=== PATIENT | female | born 1970 | race American Indian/Alaskan Native ===

== ENCOUNTER 2018-07-25 06:06 | Emergency (ER) | payer MEDICAID ==
[2018-07-25] MEDS ORDERED: TORADOL IM ONE (09:08)
[2018-07-25] MEDS ORDERED: NORCO 5/325 PO ONE (09:08)
--- NOTE | 2018-07-25 09:12 | Emergency Department Report ---
ED General Adult HPI - General Chief complaint: Back Pain/Injury Stated complaint: BACKPAIN/TOOTHACHE Time Seen by Provider: 07/25/18 09:05 Source: patient Mode of arrival: Ambulatory Limitations: No Limitations - History of Present Illness Initial comments: Ms. Johnson is a fairly healthy 47-year-old female with history of degenerative disc disease, emphysema. She presents with back spasms and broken tooth. She helped her friend move out of her apartment. She was lifting boxes on yesterday. Developed back spasms. She's had similar back pain. She now has pain and a broken decayed tooth right upper ridge. Tooth #6. Pain radiated into her right cheek. She noted right cheek swelling. -: Gradual, This morning Location: face, back Radiation: non-radiation Severity scale (0 -10): 8 Quality: aching, constant Consistency: constant Improves with: none Worsens with: movement - Related Data Previous Rx's Medication Instructions Recorded Last Taken Type Pantoprazole [Protonix TAB] 20 mg PO QDAY #10 tablet. 07/17/16 Unknown Rx traMADol [Ultram] 50 mg PO Q6HR PRN #14 tablet 07/17/16 Unknown Rx Amoxicillin/K Clav Tab [Augmentin 1 tab PO Q12HR #20 tab 08/20/16 Unknown Rx 875 mg] Ibuprofen [Motrin] 800 mg PO Q8HR PRN #30 tablet 08/20/16 Unknown Rx metroNIDAZOLE [Flagyl] 500 mg PO Q12HR #14 tab 08/20/16 Unknown Rx Cyclobenzaprine [Flexeril] 10 mg PO TID PRN #20 tablet 07/25/18 Unknown Rx HYDROcodone/APAP 5-325 [[place]ent[place] 1 each PO Q6HR PRN #10 tablet 07/25/18 Unknown Rx 5/325] Ibuprofen 400 mg PO QID 5 Days #20 tablet 07/25/18 Unknown Rx Allergies Allergy/AdvReac Type Severity Reaction Status Date / Time No Known Allergies Allergy Verified 07/25/18 07:35 ED Review of Systems ROS: Stated complaint: BACKPAIN/TOOTHACHE Other details as noted in HPI Comment: All other systems reviewed and negative Constitutional: denies: fever, malaise ENT: denies: throat pain Respiratory: denies: cough Cardiovascular: denies: chest pain Neurological: numbness, paresthesias ED Past Medical Hx - Past Medical History Hx Heart Attack/AMI: No Additional medical history: emphysema - Surgical History Additional Surgical History: LEFT LEG / SPURS / C SECTIONS X 2 - Social History Smoking Status: Current Every Day Smoker Substance Use Type: None - Medications Home Medications: Home Medications Medication Instructions Recorded Confirmed Last Taken Type Pantoprazole [Protonix TAB] 20 mg PO QDAY #10 tablet.dr 07/17/16 Unknown Rx traMADol [Ultram] 50 mg PO Q6HR PRN #14 tablet 07/17/16 Unknown Rx Amoxicillin/K Clav Tab [Augmentin 1 tab PO Q12HR #20 tab 08/20/16 Unknown Rx 875 mg] Ibuprofen [Motrin] 800 mg PO Q8HR PRN #30 tablet 08/20/16 Unknown Rx metroNIDAZOLE [Flagyl] 500 mg PO Q12HR #14 tab 08/20/16 Unknown Rx Cyclobenzaprine [Flexeril] 10 mg PO TID PRN #20 tablet 07/25/18 Unknown Rx HYDROcodone/APAP 5-325 [Valentine 1 each PO Q6HR PRN #10 tablet 07/25/18 Unknown Rx 5/325] Ibuprofen 400 mg PO QID 5 Days #20 tablet 07/25/18 Unknown Rx ED Physical Exam - General Limitations: No Limitations General appearance: alert, in no apparent distress - Head Head exam: Present: atraumatic, normocephalic - Eye Eye exam: Present: normal appearance - ENT ENT exam: Present: mucous membranes moist, other (tooth #6, severe decay, with obvious avulsion, dangling, no associated gum or face swelling) - Neck Neck exam: Present: normal inspection, other (no facial or neck edema). Absent : tenderness, meningismus - Respiratory Respiratory exam: Present: normal lung sounds bilaterally. Absent: respiratory distress, wheezes, rales, rhonchi - Cardiovascular Cardiovascular Exam: Present: regular rate, normal rhythm, normal heart sounds. Absent: bradycardia, tachycardia, systolic murmur, diastolic murmur, rubs, gallop - GI/Abdominal GI/Abdominal exam: Present: soft, normal bowel sounds. Absent: distended, tenderness, guarding, rebound - Extremities Exam Extremities exam: Present: normal inspection - Back Exam Back exam: Present: normal inspection - Neurological Exam Neurological exam: Present: alert, oriented X3 - Psychiatric Psychiatric exam: Present: normal affect, normal mood - Skin Skin exam: Present: warm, dry, intact, normal color. Absent: rash ED Course Vital Signs 07/25/18 07:35 Temperature 98.1 F Pulse Rate 84 Respiratory 18 Rate Blood Pressure 126/84 O2 Sat by Pulse 100 Oximetry ED Medical Decision Making - Medical Decision Making 1. back strain due to heavy lifting, neurologically intact without red flags such as fever, weight loss of hx of IVDA, no s/s of cauda equina, rx: ibuprofen , flexeril, norco 2. severe dental decay with tooth fracture, tooth will be lost soon, Rx: PCN for possible dental infection Critical care attestation.: If time is entered above; I have spent that time in minutes in the direct care of this critically ill patient, excluding procedure time. ED Disposition Clinical Impression: Back strain, Dental decay, Dental infection Disposition: TO HOME OR SELFCARE Is pt being admited?: No Does the pt Need Aspirin: No Condition: Stable Instructions: Low Back Strain (ED), Dental Caries (ED) Prescriptions: Cyclobenzaprine [Flexeril] 10 mg PO TID PRN #20 tablet PRN Reason: Muscle Spasm HYDROcodone/APAP 5-325 [Valentine 5/325] 1 each PO Q6HR PRN #10 tablet PRN Reason: Pain Ibuprofen 400 mg PO QID 5 Days #20 tablet
[2018-07-25 09:45] VITALS: BP 139/87
== END 2018-07-25 09:55 | disposition home or self-care (01) ==
LOC: ED 06:06
DX: S39.012A Strain of muscle, fascia and tendon of lower back, initial encounter (principal); K02.9 Dental caries, unspecified; J43.9 Emphysema, unspecified; F17.200 Nicotine dependence, unspecified, uncomplicated; X50.0XXA Overexertion from strenuous movement or load, initial encounter; Y93.89 Activity, other specified; Y92.89 Other specified places as the place of occurrence of the external cause; Y99.8 Other external cause status
CPT/HCPCS: 96372; 99282; J1885

== ENCOUNTER 2019-03-10 15:21 | Inpatient (IN) | payer MEDICAID ==
--- NOTE | 2019-03-10 15:53 | Emergency Department Report ---
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 Apparently the patient passed out twice while she was in the office for a "routine visit." She says that she has a history of coronary artery disease and NSTEMI but no stents or CABG. It does not appear that she received anything for her symptoms in route with EMS or at the field care coordinator's office. No recent travel or sick contacts at home. She is a tobacco smoker but denies any illicit drug use. ED Past Medical Hx - Past Medical History Previous Medical History?: Yes Hx Heart Attack/AMI: Yes Additional medical history: emphysema - Surgical History Past Surgical History?: Yes Additional Surgical History: LEFT LEG / SPURS / C SECTIONS X 2 - Social History Smoking Status: Current Every Day Smoker Substance Use Type: None - Medications Home Medications: Home Medications Medication Instructions Recorded Confirmed Last Taken Type Pantoprazole [Protonix TAB] 20 mg PO QDAY #10 tablet.dr 07/17/16 Unknown Rx traMADol [Ultram] 50 mg PO Q6HR PRN #14 tablet 07/17/16 Unknown Rx Amoxicillin/K Clav Tab [Augmentin 1 tab PO Q12HR #20 tab 08/20/16 Unknown Rx 875 mg] Ibuprofen [Motrin] 800 mg PO Q8HR PRN #30 tablet 08/20/16 Unknown Rx metroNIDAZOLE [Flagyl] 500 mg PO Q12HR #14 tab 08/20/16 Unknown Rx Cyclobenzaprine [Flexeril] 10 mg PO TID PRN #20 tablet 07/25/18 Unknown Rx HYDROcodone/APAP 5-325 [[place] 1 each PO Q6HR PRN #10 tablet 07/25/18 Unknown Rx 5/325] Ibuprofen 400 mg PO QID 5 Days #20 tablet 07/25/18 Unknown Rx ED Review of Systems ROS: Stated complaint: CHEST PAIN Other details as noted in HPI Constitutional: denies: chills, fever Eyes: denies: eye pain, vision change ENT: denies: ear pain, throat pain Respiratory: orthopnea, shortness of breath Cardiovascular: chest pain. denies: edema Gastrointestinal: denies: abdominal pain, vomiting Genitourinary: denies: dysuria, discharge Musculoskeletal: denies: back pain, arthralgia Skin: denies: rash, lesions Neurological: denies: headache, weakness Physical Exam - Physical Exam Vital Signs: Vital Signs 03/10/19 15:30 Temperature 97.8 F Pulse Rate 67 Respiratory 16 Rate Blood Pressure 153/84 O2 Sat by Pulse 100 Oximetry Physical Exam: GENERAL: The patient is well-developed well-nourished. HENT: Normocephalic. Atraumatic. Patient has moist mucous membranes. EYES: Extraocular motions are intact. Pupils equal reactive to light bilaterally. NECK: Supple. Trachea is midline. CHEST/LUNGS: Clear to auscultation. There is some tachypnea as the patient appears to be hyperventilating. HEART/CARDIOVASCULAR: Regular. There is no tachycardia. There is no murmur. ABDOMEN: Abdomen is soft, nontender. Patient has normal bowel sounds. There is no abdominal distention. SKIN: Skin is warm and dry. NEURO: The patient is awake, alert, and oriented. The patient has no focal neurologic deficits. The patient has normal speech. MUSCULOSKELETAL: There is no tenderness or deformity. There is no limitation range of motion. There is no evidence of acute injury. ED Course Vital Signs 03/10/19 15:30 Temperature 97.8 F Pulse Rate 67 Respiratory 16 Rate Blood Pressure 153/84 O2 Sat by Pulse 100 Oximetry ED Medical Decision Making - Lab Data Result diagrams: 03/10/19 15:34 03/10/19 15:42 - EKG Data -: EKG Interpreted by Me EKG shows normal: sinus rhythm, axis, intervals, QRS complexes, ST-T waves Rate: normal - EKG Data When compared to previous EKG there are: previous EKG unavailable Interpretation: normal EKG - Radiology Data Radiology results: report reviewed, image reviewed interpreted by me: Chest x-ray does not show any acute process. There are no pleural effusions, obvious pneumonia and there is no pneumothorax. PROCEDURE: CT ANGIO CHEST TECHNIQUE: Computerized tomographic angiography of the chest was performed after the IV injection of iodinated nonionic contrast including image processing. The image data was postprocessed using 2-dimensional multiplanar reformatted (MPR) and 3-dimensional (MIP and/or volume rendered) techniques. Automated exposure control, adjustment of mA and/or kV according to patient size, or iterative reconstruction dose optimization techniques were utilized. CT DOSE LENGTH PRODUCT: 723.4 mGycm HISTORY: CP, elevated dimer COMPARISONS: Chest x-ray also performed today . FINDINGS: There is bilateral pulmonary emphysema. There is no evidence of focal infiltrate, pneumothorax or pleural fluid collection. There is platelike atelectasis in the right lung base. The trachea and bronchi are patent. The heart is enlarged. There is a small pericardial fluid collection anteriorly. The thoracic aorta is normal caliber. There is no evidence of intrathoracic adenopathy. No filling defects are demonstrated within the pulmonary arteries to suggest the presence of pulmonary artery emboli. The visualized portion of the upper abdomen is unremarkable. The bony structures are notable for spondylitic change of the cervical and thoracic spine. IMPRESSION: 1. No evidence of an acute pulmonary process. 2. No evidence of pulmonary artery emboli. 3. Pulmonary emphysema. 4. Cardiomegaly with small pericardial fluid collection. 5. Spondylitic changes cervical and thoracic spine. This document is electronically signed by Mary Stevens MD., March 10 2019 06:54:15 PM ET Transcribed By: ED Dictated By: MARY STEVENS MD Electronically Authenticated By: MARY STEVENS MD Signed Date/Time: 03/10/19 2196 - Medical Decision Making This patient presents to the emergency department via EMS from the cardiology office after she allegedly had 2 episodes of passing out along with some chest pain or shortness of breath. This emergency department, she appears to be hyperventilating slightly but her heart and lungs sounds are normal to auscultation. There is no signs of any hypoxia. Her vital signs are stable. A chest x-ray was done that does not show any pleural effusions, pneumonia, pneumothorax, focal consolidation, or any other acute process. Her labs have been unremarkable except for an elevated and equivocal d-dimer. CT angiography of the chest was done that does not show any signs of pulmonary embolism, dissection, aneurysm, or any other acute process. However given the patient's chest pain, syncopal episodes, while in the cardiology office, with her history of NSTEMI, the patient will be admitted to the hospital for further evaluation and was accepted for admission by the hospitalist. - Differential Diagnosis LA, PE, CHF, Pneumonia Critical Care Time: No Critical care attestation.: If time is entered above; I have spent that time in minutes in the direct care of this critically ill patient, excluding procedure time. ED Disposition Clinical Impression: Acute chest pain Syncope Qualifiers: Syncope type: unspecified Qualified Code(s): R55 - Syncope and collapse Hypertension Qualifiers: Hypertension type: essential hypertension Qualified Code(s): I10 - Essential (primary) hypertension Disposition: DC- TO HOME OR SELFCARE Is pt being admited?: Yes Condition: Fair Instructions: Chest Pain (ED), Syncope (ED), Hypertension (ED) Time of Disposition: 19:41
[2019-03-10 16:03] LABS: Hematocrit 30.8 % (30.3-42.9); Hemoglobin 9.9 gm/dl (10.1-14.3); Mean Corpuscular HGB Conc 32 % (30-34); Mean Corpuscular Volume 76 fl (79-97); Platelet Count 298 K/mm3 (140-440); Red Blood Count 4.06 M/mm3 (3.65-5.03)
[2019-03-10 16:05] LABS: INR 0.92 (0.87-1.13); Partial Thromboplastin Time 31.8 Sec. (24.2-36.6)
[2019-03-10 16:21] LABS: Red Cell Distribution Width 21.5 % (13.2-15.2)
[2019-03-10 16:31] LABS: Alanine Aminotransferase 16 units/L (7-56); Albumin 3.6 g/dL (3.9-5); BUN/Creatinine Ratio 9; Blood Urea Nitrogen 9 mg/dL (7-17); Calcium 9.1 mg/dL (8.4-10.2); Hemolysis Index 7
--- NOTE | 2019-03-10 16:58 | XRay Report ---
PROCEDURE: XR CHEST 1V AP TECHNIQUE: Chest radiograph single view. HISTORY: Chest Pain COMPARISONS: None . FINDINGS: Heart: Normal. Mediastinum/Vessels: Normal. Lungs/Pleural space: Normal. Bony thorax: No acute osseous abnormality. Life support devices: None. IMPRESSION: No acute cardiopulmonary abnormality. This document is electronically signed by Zaina Brooks MD., March 10 2019 04:56:23 PM ET
[2019-03-10] MEDS ORDERED: MORPHINE IV ONE (18:33)
--- NOTE | 2019-03-10 18:55 | Cat Scan Report ---
PROCEDURE: CT ANGIO CHEST TECHNIQUE: Computerized tomographic angiography of the chest was performed after the IV injection of iodinated nonionic contrast including image processing. The image data was postprocessed using 2-di mensional multiplanar reformatted (MPR) and 3-dimensional (MIP and/or volume rendered) techniques. Au tomated exposure control, adjustment of mA and/or kV according to patient size, or iterative reconstr uction dose optimization techniques were utilized. CT DOSE LENGTH PRODUCT: 723.4 mGycm HISTORY: CP, elevated dimer COMPARISONS: Chest x-ray also performed today . FINDINGS: There is bilateral pulmonary emphysema. There is no evidence of focal infiltrate, pneumothorax or pleural fluid collection. There is platelike atelectasis in the right lung base. The trachea and bronchi are patent. The heart is enlarged. There is a small pericardial fluid collection anteriorly. The thoracic aorta is normal caliber. There is no evidence of intrathoracic adenopathy. No filling defects are demonstrated within the pulmonary arteries to suggest the presence of pulmonar y artery emboli. The visualized portion of the upper abdomen is unremarkable. The bony structures are notable for spondylitic change of the cervical and thoracic spine. IMPRESSION: 1. No evidence of an acute pulmonary process. 2. No evidence of pulmonary artery emboli. 3. Pulmonary emphysema. 4. Cardiomegaly with small pericardial fluid collection. 5. Spondylitic changes cervical and thoracic spine. This document is electronically signed by Mary Stevens MD., March 10 2019 06:54:15 PM ET
[2019-03-10] MEDS ORDERED: BENADRYL PO ONE (20:00)
[2019-03-10] MEDS ORDERED: PROVENTIL IH PRN (20:14)
[2019-03-10] MEDS ORDERED: ZOFRAN IV PRN (20:14)
[2019-03-10] MEDS ORDERED: MORPHINE IV PRN (20:14)
[2019-03-10] MEDS ORDERED: SODIUM CHLORIDE FLUSH SYRINGE 10 ML IV PRN (20:14)
[2019-03-10] MEDS ORDERED: PULMICORT IH SCH (20:15)
[2019-03-10] MEDS: DUONEB *Not for PRN Use IH SCH (20:15)
[2019-03-10] MEDS ORDERED: NITROSTAT SL PRN (20:16)
[2019-03-10 21:06] LABS: Chol/HDL Ratio 2.19 %
--- NOTE | 2019-03-10 21:36 | History and Physical Report ---
History of Present Illness Date of examination: 03/10/19 Date of admission: 03/10/19 20:14 Chief complaint: Chest pain and shortness of breath History of present illness: 48-year-old -Portuguese female who is a nonsmoker with history of degenerative disc disease, and emphysema presents [facility] ED via EMS with complaints of substernal chest pain and shortness of breath. 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) earlier today when she started experiencing substernal chest pain and shortness of breath. EMS was called and she was transported to our facility. She describes her pain as pressure and rates it 4 -5 /10. It is non-radiating and there are no aggravating or relieving factors. She states that her dyspnea is at rest. She is unable to lie flat and experiences orthopnea. According to patient she experienced two syncopal episodes. This is questionable and has not been confirmed by medical personnel. Furthermore patient states she has history of coronary artery disease and an STEMI. There is no evidence of CABG or stent placement and she denies being on antihypertensive, heart failure medication. Of note, pt states that she eats "carpet and strings". She has been doing so for several years. She states that she checks her stool, and that all "carpet fibers and strings" consumed are passed in stool. Denies cough, n/v/d, fever, chills, hemoptysis, headache Past History Past Medical History: other (emphysema, degenerative disc disease) Past Surgical History: (x2), Other Social history: smoking (smokes) Family history: no significant family history Medications and Allergies Allergies Allergy/AdvReac Type Severity Reaction Status Date / Time No Known Allergies Allergy Verified 07/25/18 07:35 Home Medications Medication Instructions Recorded Confirmed Last Taken Type Acetaminophen [Non-Aspirin Extra 1,000 mg PO BID 03/10/19 03/10/19 Unknown History Strength] Amoxicillin [Trimox CAP] 500 mg PO Q8H 03/10/19 03/10/19 Unknown History Oxycodone HCl/Acetaminophen 1 each PO Q6HR PRN 03/10/19 03/10/19 Unknown History [Percocet 7.5/325 mg] traMADol [Ultram] 50 mg PO BID PRN 03/10/19 03/10/19 Unknown History Active Meds: Active Medications Acetaminophen (Tylenol) 650 mg PO Q4H PRN PRN Reason: Pain MILD(1-3)/Fever >100.5/QUINN Albuterol (Proventil) 2.5 mg IH Q3HRT PRN PRN Reason: Shortness Of Breath Albuterol/Ipratropium (Duoneb *Not For Prn Use*) 1 ampul IH Q6HRT COBY Aspirin (Baby Aspirin) 81 mg PO QDAY COBY Atorvastatin Calcium (Lipitor) 40 mg PO QHS COBY Budesonide (Pulmicort) 0.5 mg IH Q12HRT COBY Enoxaparin Sodium (Lovenox) 40 mg SUB-Q QDAY@2200 COBY Hydromorphone HCl (Dilaudid) 0.5 mg IV Q3H PRN PRN Reason: Pain , Severe (7-10) Methylprednisolone Sodium Succinate (Solu-Medrol) 40 mg IV Q8HR COBY Morphine Sulfate (Morphine) 2 mg IV Q4H PRN PRN Reason: Pain, Moderate (4-6) Stop: 03/11/19 23:59 Nicotine (Habitrol) 14 mg TD QDAY COBY Nitroglycerin (Nitrostat) 0.4 mg SL Q5M PRN PRN Reason: Chest Pain Ondansetron HCl (Zofran) 4 mg IV Q8H PRN PRN Reason: Nausea And Vomiting Sodium Chloride (Sodium Chloride Flush Syringe 10 Ml) 10 ml IV BID COBY Sodium Chloride (Sodium Chloride Flush Syringe 10 Ml) 10 ml IV PRN PRN PRN Reason: LINE FLUSH Review of Systems All systems: negative (reviewed and no additional remarkable complaints except as noted above) Cardiovascular: chest pain, orthopnea, shortness of breath, dyspnea on exertion Respiratory: shortness of breath, dyspnea on exertion Psychiatric: other (PICA: Eats carpet and strings) Exam - Physical Exam Narrative exam: Physical exam General appearance: Present: No acute distress, anxious, alert and oriented 3, adult female - EENT Eyes: Present: PERRL, EOM intact ENT: hearing intact, normal dentition - Neck Neck: Present: supple, normal ROM - Respiratory Respiratory effort: Non-labored Respiratory: Clear throughout - Cardiovascular Heart rate: 68 (bpm) Rhythm: Sinus rhythm Heart Sounds: Present: S1 & S2. Absent: rub, click - Extremities Extremities: no ischemia, pulses intact, - Peripheral Assessment Peripheral Pulses: within normal limits - Abdominal General gastrointestinal: soft, non-tender, normal bowel sounds - Integumentary Integumentary: Present: warm, dry - Musculoskeletal Musculoskeletal: Able to move all extremities -Neurological Neurological: CNII-XII intact - Psychiatric Psychiatric: Anxious, cooperative - Constitutional Vitals: Temp Pulse Resp BP Pulse Ox 97.8 F 64 18 146/79 99 03/10/19 15:30 03/10/19 21:01 03/10/19 21:01 03/10/19 21:01 03/10/19 21:01 Results - Labs CBC & Chem 7: 03/10/19 15:34 03/10/19 15:42 Labs: Laboratory Last Values WBC 5.9 K/mm3 (4.5-11.0) 03/10/19 15:34 RBC 4.06 M/mm3 (3.65-5.03) 03/10/19 15:34 Hgb 9.9 gm/dl (10.1-14.3) L 03/10/19 15:34 Hct 30.8 % (30.3-42.9) 03/10/19 15:34 MCV 76 fl (79-97) L 03/10/19 15:34 MCH 24 pg (28-32) L 03/10/19 15:34 MCHC 32 % (30-34) 03/10/19 15:34 RDW 21.5 % (13.2-15.2) H 03/10/19 15:34 Plt Count 298 K/mm3 (140-440) 03/10/19 15:34 Lymph % (Auto) Chemical Laboratory Assistant 03/10/19 15:34 Bay % (Auto) Chemical Laboratory Assistant 03/10/19 15:34 Eos % (Auto) Chemical Laboratory Assistant 03/10/19 15:34 Baso % (Auto) Chemical Laboratory Assistant 03/10/19 15:34 Lymph # Chemical Laboratory Assistant 03/10/19 15:34 Bay # Chemical Laboratory Assistant 03/10/19 15:34 Eos # Chemical Laboratory Assistant 03/10/19 15:34 Baso # Chemical Laboratory Assistant 03/10/19 15:34 Seg Neutrophils % Chemical Laboratory Assistant 03/10/19 15:34 Seg Neutrophils # Chemical Laboratory Assistant 03/10/19 15:34 PT 12.9 Sec. (12.2-14.9) 03/10/19 15:41 INR 0.92 (0.87-1.13) 03/10/19 15:41 APTT 31.8 Sec. (24.2-36.6) 03/10/19 15:41 504.38 ng/mlDDU (0-234) H 03/10/19 15:41 Sodium 139 mmol/L (137-145) 03/10/19 15:42 Potassium 3.8 mmol/L (3.6-5.0) 03/10/19 15:42 Chloride 105.2 mmol/L (98-107) 03/10/19 15:42 Carbon Dioxide 25 mmol/L (22-30) 03/10/19 15:42 13 mmol/L 03/10/19 15:42 BUN 9 mg/dL (7-17) 03/10/19 15:42 1.0 mg/dL (0.7-1.2) 03/10/19 15:42 Estimated GFR > 60 ml/min 03/10/19 15:42 9 % 03/10/19 15:42 Glucose 77 mg/dL (65-100) 03/10/19 15:42 Calcium 9.1 mg/dL (8.4-10.2) 03/10/19 15:42 0.20 mg/dL (0.1-1.2) 03/10/19 15:42 AST 20 units/L (5-40) 03/10/19 15:42 ALT 16 units/L (7-56) 03/10/19 15:42 64 units/L (35-129) 03/10/19 15:42 < 0.010 ng/mL (0.00-0.029) 03/10/19 20:40 NT-Pro-B Natriuret Pep 442.3 pg/mL (0-450) 03/10/19 15:42 6.8 g/dL (6.3-8.2) 03/10/19 15:42 3.6 g/dL (3.9-5) L 03/10/19 15:42 1.1 % 03/10/19 15:42 Triglycerides 153 mg/dL (2-149) H 03/10/19 20:40 Cholesterol 147 mg/dL (50-199) 03/10/19 20:40 58 mg/dL (50-130) 03/10/19 20:40 67 mg/dL (40-59) H 03/10/19 20:40 2.19 % 03/10/19 20:40 HCG, Qual Negative (Negative) 03/10/19 15:34 - Imaging and Cardiology Chest x-ray: report reviewed ( No acute cardiopulmonary abnormality. ), image reviewed Imaging and Cardiology: CTA Chest: IMPRESSION: 1. No evidence of an acute pulmonary process. 2. No evidence of pulmonary artery emboli. 3. Pulmonary emphysema. 4. Cardiomegaly with small pericardial fluid collection. 5. Spondylitic changes cervical and thoracic spine. Assessment and Plan Assessment and plan: 48-year-old -Portuguese female who is a nonsmoker with history of deg enerative disc disease, and emphysema presents [facility] ED via EMS with complaints of substernal chest pain and shortness of breath. Troponin negative 3, d-dimer is elevated at 504.38 CT angiogram chest negative for PE. CT angiogram chest was revealing for emphysematous changes. Will admit as OBS to Telemetry unit. Patient stated that she consumes "carpet and strings"; will order mental health consult as well. Acute chest pain R/O ACS HTN Emphysema Questionable COPD Suspicion of psychiatric disease Tobacco abuse Plan: Continue supportive care Continuous telemetry monitoring Pain management Nothing by mouth at midnight Stress test (treadmill) in am Cardiology consult (Dr. Vargas) Monitor BP IV hydralazine when necessary Schedule and Pulmicort, albuterol when necessary Solu-Medrol 40 mg every 8 hours Counseled for cessation; start nicotine patch ASA 81mg, and Lipitor 40 mg daily at bedtime Mental health consult pending DVT PPX on Lovenox and SCD's Advance Directives: No VTE prophylaxis?: Chemical Reason for no VTE Prophylaxis: Anticoagulant allergy Plan of care discussed with patient/family: Yes
[2019-03-10] MEDS: SOLU-Medrol IV SCH (22:27)
[2019-03-10] MEDS: DILAUDID IV PRN (22:28)
[2019-03-10] MEDS: LOVENOX SUB-Q SCH (22:28)
[2019-03-10] MEDS: SODIUM CHLORIDE FLUSH SYRINGE 10 ML IV SCH (22:29)
[2019-03-11] MEDS: HABITROL TD SCH ×2 (01:11→21:00)
[2019-03-11] MEDS: BENADRYL PO PRN (01:12)
[2019-03-11] MEDS: DUONEB *Not for PRN Use IH SCH (03:01)
[2019-03-11] MEDS: DILAUDID IV PRN (03:16)
[2019-03-11 05:45] LABS: Basophils % (Auto) 0.5 % (0.0-1.8); Eosinophils % (Auto) 0.1 % (0.0-4.3); Hematocrit 30.8 % (30.3-42.9); Hemoglobin 9.7 gm/dl (10.1-14.3); Lymphocytes % (Auto) 11.5 % (13.4-35.0); Mean Corpuscular HGB Conc 32 % (30-34); Mean Corpuscular Volume 76 fl (79-97); Monocytes # (Auto) 0.2 K/mm3 (0.0-0.8); Monocytes % (Auto) 2.2 % (0.0-7.3); Platelet Count 278 K/mm3 (140-440); Red Blood Count 4.08 M/mm3 (3.65-5.03)
[2019-03-11] MEDS: SOLU-Medrol IV SCH (05:45)
[2019-03-11 05:52] LABS: Red Cell Distribution Width 21.2 % (13.2-15.2)
[2019-03-11 05:54] LABS: BUN/Creatinine Ratio 11; Blood Urea Nitrogen 11 mg/dL (7-17); Calcium 8.8 mg/dL (8.4-10.2); Hemolysis Index 1
[2019-03-11] MEDS: PERCOCET 5/325 PO PRN ×2 (10:21→20:30)
[2019-03-11] MEDS: BABY ASPIRIN PO SCH (10:21)
[2019-03-11] MEDS: SODIUM CHLORIDE FLUSH SYRINGE 10 ML IV SCH ×2 (10:23→21:02)
--- NOTE | 2019-03-11 12:26 | Progress Note ---
Assessment and Plan - Patient Problems (1) Syncope Current Visit: Yes Status: Acute Qualifiers: Syncope type: unspecified Qualified Code(s): R55 - Syncope and collapse Plan to address problem: Patient with atypical chest pain and syncope, etiology of the chest pain is uncertain, syncope appears possibly vasovagal, although malingering cannot be excluded. At this point, a stress test will not be helpful, and patient states she is unable to lay flat. Optimal strategies for further evaluation will be a coronary CTA or diagnostic coronary angiography. Subjective Date of service: 03/11/19 Interval history: The patient reported to our office yesterday, complaining of severe chest pain, EKG during the chest pain was normal with no ischemic ST changes. There was also a transient episode of syncope, during which EKG remained stable sinus rhythm with no ischemic EKG changes. Blood pressure was also normal. The observed episode of syncope appeared vasovagal, but curiously without any hemodynamic changes, making the suspicion of malingering to be a consideration in this setting. Further workup in the emergency room has also been normal, including a CT chest PE protocol, chest x-ray, serial ECGs and serial cardiac enzymes. Objective Vital Signs Temp Pulse Pulse Resp Resp BP Pulse Ox 03/11/19 11:53 97.7 F 84 18 94/43 72 L 03/11/19 11:21 20 03/11/19 10:21 20 03/11/19 10:00 76 03/11/19 07:49 97.5 F L 18 111/51 03/11/19 04:41 97.9 F 64 20 106/51 94 03/11/19 03:52 97 03/11/19 03:36 97 03/11/19 03:16 79 20 20 03/11/19 03:01 77 20 03/11/19 02:25 72 03/11/19 01:44 68 03/11/19 00:12 98.3 F 65 20 150/79 100 03/10/19 22:30 97.5 F L 64 20 136/79 96 03/10/19 21:50 74 16 146/79 100 03/10/19 21:40 74 18 146/79 100 03/10/19 21:30 60 16 97 03/10/19 21:20 62 18 146/79 99 03/10/19 21:11 59 L 15 146/79 99 03/10/19 21:01 64 18 146/79 99 03/10/19 20:45 58 L 19 139/76 99 03/10/19 20:33 139/76 72 L 03/10/19 20:15 78 25 H 145/63 100 03/10/19 20:01 58 L 20 145/63 99 03/10/19 19:45 66 18 139/76 88 03/10/19 19:31 64 27 H 139/76 96 03/10/19 19:15 71 16 139/76 84 03/10/19 19:01 67 21 139/76 03/10/19 18:45 86 17 88/70 03/10/19 18:31 68 19 88/70 94 03/10/19 18:15 70 21 88/70 91 03/10/19 18:04 66 26 H 88/70 100 03/10/19 17:46 69 14 88/70 98 03/10/19 17:30 69 30 H 88/70 100 03/10/19 17:16 73 35 H 88/70 100 03/10/19 17:04 72 29 H 153/84 99 03/10/19 16:30 61 14 153/84 100 03/10/19 16:16 70 32 H 153/84 100 03/10/19 16:00 68 46 H 153/84 100 03/10/19 15:46 63 35 H 153/84 82 L 03/10/19 15:30 97.8 F 72 32 H 153/84 87 03/10/19 15:28 75 29 H - Physical Examination General: No Apparent Distress HEENT: Positive: PERRL Neck: Positive: neck supple Cardiac: Positive: Reg Rate and Rhythm Lungs: Positive: clear to auscultation Neuro: Positive: Grossly Intact Abdomen: Positive: Soft Skin: Positive: Clear Extremities: Absent: edema - Labs and Meds Cardiac Enzymes 03/10/19 Range/Units 15:42 AST 20 (5-40) units/L Coagulation 03/10/19 Range/Units 15:41 PT 12.9 (12.2-14.9) Sec. INR 0.92 (0.87-1.13) APTT 31.8 (24.2-36.6) Sec. Lipids 03/10/19 Range/Units 20:40 Triglycerides 153 H (2-149) mg/dL Cholesterol 147 (50-199) mg/dL HDL Cholesterol 67 H (40-59) mg/dL Cholesterol/HDL Ratio 2.19 % CBC 03/10/19 03/11/19 Range/Units 15:34 04:04 WBC 5.9 8.8 (4.5-11.0) K/mm3 RBC 4.06 4.08 (3.65-5.03) M/mm3 Hgb 9.9 L 9.7 L (10.1-14.3) gm/dl Hct 30.8 30.8 (30.3-42.9) % Plt Count 298 278 (140-440) K/mm3 Lymph # Interior Design Coordinator 1.0 L [place] # Interior Design Coordinator 0.2 Eos # Interior Design Coordinator 0.0 Baso # Interior Design Coordinator 0.0 Comprehensive Metabolic Panel 03/10/19 03/11/19 Range/Units 15:42 04:04 Sodium 139 136 L (137-145) mmol/L Potassium 3.8 4.4 (3.6-5.0) mmol/L Chloride 105.2 103.6 (98-107) mmol/L Carbon Dioxide 25 24 (22-30) mmol/L BUN 9 11 (7-17) mg/dL Creatinine 1.0 1.0 (0.7-1.2) mg/dL Glucose 77 157 H (65-100) mg/dL Calcium 9.1 8.8 (8.4-10.2) mg/dL AST 20 (5-40) units/L ALT 16 (7-56) units/L Alkaline Phosphatase 64 (35-129) units/L Total Protein 6.8 (6.3-8.2) g/dL Albumin 3.6 L (3.9-5) g/dL
--- NOTE | 2019-03-11 13:08 | Progress Note ---
Assessment and Plan Assessment and plan: 48-year-old -[place] female who is a nonsmoker with history of degenerative disc disease, and emphysema presents [facility] ED via EMS with complaints of substernal chest pain and shortness of breath. 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 EMS was called and she was transported to our facility. She describes her pain as pressure and rates it 4 -5 /10. It is non-radiating and there are no aggravating or relieving factors. She states that her dyspnea is at rest. She is unable to lie flat and experiences orthopnea. According to patient she experienced two syncopal episodes. This is questionable and has not been confirmed by medical personnel. Furthermore patient states she has history of coronary artery disease and an STEMI. There is no evidence of CABG or stent placement and she denies being on antihypertensive, heart failure medication. Of note, pt states that she eats "carpet and strings". She has been doing so for several years. She states that she checks her stool, and that all "carpet fibers and strings" consumed are passed in stool. Chest pain - Cardiac events are negative, EKG sinus rhythm no murmur findings - Cardiology consulted and recommend diagnostic coronary CTA, or coronary angiography - We'll follow recommendation - Pain control - CTA is negative Psychiatric illness - Patient said she is eating carpet fibers and strings - Mental health evaluation pending History of emphysema - Currently patient denies any shortness of breath - Continue albuterol when necessary DVT prophylaxis; Lovenox Disposition; patient will be here for workup till Wednesday, F/u psych input History Interval history: Patient was seen and evaluated this morning, patient complaining chest pain. Hospitalist Physical - Physical exam Narrative exam: Not in cardiopulmonary distress. The patient is obese. Vital signs as documented. Head exam is unremarkable. No scleral icterus . Neck is without jugular venous distension, thyromegaly, or carotid bruits. Lungs are clear to auscultation. Cardiac exam reveals regular rate and Rhythm. Abdominal exam reveals normal bowel sounds, no masses, no organomegaly and no a ortic enlargement. Extremities are nonedematous and both femoral and pedal pulses are normal. FLIGHT NURSE: Alert and oriented 3. No focal weakness. - Constitutional Vitals: Temp Pulse Resp BP Pulse Ox 97.7 F 84 18 94/43 72 L 03/11/19 11:53 03/11/19 11:53 03/11/19 11:53 03/11/19 11:53 03/11/19 11:53 Results - Labs CBC & Chem 7: 03/11/19 04:04 03/11/19 04:04 Labs: Laboratory Last Values WBC 8.8 K/mm3 (4.5-11.0) 03/11/19 04:04 RBC 4.08 M/mm3 (3.65-5.03) 03/11/19 04:04 Hgb 9.7 gm/dl (10.1-14.3) L 03/11/19 04:04 Hct 30.8 % (30.3-42.9) 03/11/19 04:04 MCV 76 fl (79-97) L 03/11/19 04:04 MCH 24 pg (28-32) L 03/11/19 04:04 MCHC 32 % (30-34) 03/11/19 04:04 RDW 21.2 % (13.2-15.2) H 03/11/19 04:04 Plt Count 278 K/mm3 (140-440) 03/11/19 04:04 Lymph % (Auto) 11.5 % (13.4-35.0) L 03/11/19 04:04 [place] % (Auto) 2.2 % (0.0-7.3) 03/11/19 04:04 Eos % (Auto) 0.1 % (0.0-4.3) 03/11/19 04:04 Baso % (Auto) 0.5 % (0.0-1.8) 03/11/19 04:04 Lymph # 1.0 K/mm3 (1.2-5.4) L 03/11/19 04:04 [place] # 0.2 K/mm3 (0.0-0.8) 03/11/19 04:04 Eos # 0.0 K/mm3 (0.0-0.4) 03/11/19 04:04 Baso # 0.0 K/mm3 (0.0-0.1) 03/11/19 04:04 Seg Neutrophils % 85.7 % (40.0-70.0) H 03/11/19 04:04 Seg Neutrophils # 7.6 K/mm3 (1.8-7.7) 03/11/19 04:04 PT 12.9 Sec. (12.2-14.9) 03/10/19 15:41 INR 0.92 (0.87-1.13) 03/10/19 15:41 APTT 31.8 Sec. (24.2-36.6) 03/10/19 15:41 504.38 ng/mlDDU (0-234) H 03/10/19 15:41 Sodium 136 mmol/L (137-145) L 03/11/19 04:04 Potassium 4.4 mmol/L (3.6-5.0) 03/11/19 04:04 Chloride 103.6 mmol/L (98-107) 03/11/19 04:04 Carbon Dioxide 24 mmol/L (22-30) 03/11/19 04:04 13 mmol/L 03/11/19 04:04 BUN 11 mg/dL (7-17) 03/11/19 04:04 1.0 mg/dL (0.7-1.2) 03/11/19 04:04 Estimated GFR > 60 ml/min 03/11/19 04:04 11 % 03/11/19 04:04 Glucose 157 mg/dL (65-100) H 03/11/19 04:04 POC Glucose 78 (70-105) 03/10/19 15:34 Calcium 8.8 mg/dL (8.4-10.2) 03/11/19 04:04 0.20 mg/dL (0.1-1.2) 03/10/19 15:42 AST 20 units/L (5-40) 03/10/19 15:42 ALT 16 units/L (7-56) 03/10/19 15:42 64 units/L (35-129) 03/10/19 15:42 < 0.010 ng/mL (0.00-0.029) 03/10/19 20:40 NT-Pro-B Natriuret Pep 442.3 pg/mL (0-450) 03/10/19 15:42 6.8 g/dL (6.3-8.2) 03/10/19 15:42 3.6 g/dL (3.9-5) L 03/10/19 15:42 1.1 % 03/10/19 15:42 Triglycerides 153 mg/dL (2-149) H 03/10/19 20:40 Cholesterol 147 mg/dL (50-199) 03/10/19 20:40 58 mg/dL (50-130) 03/10/19 20:40 67 mg/dL (40-59) H 03/10/19 20:40 2.19 % 03/10/19 20:40 HCG, Qual Negative (Negative) 03/10/19 15:34 Active Medications - Current Medications Current Medications: Generic Name Dose Route Start Last Admin Trade Name Freq PRN Reason Stop Dose Admin Acetaminophen 650 mg 03/10/19 20:14 Tylenol PO Q4H PRN Pain MILD(1-3)/Fever >100.5/QUINN Albuterol 2.5 mg 03/10/19 20:14 Proventil IH Q3HRT PRN Shortness Of Breath Aspirin 81 mg 03/11/19 10:00 03/11/19 10:21 Baby Aspirin PO 81 mg QDAY COBY Administration Atorvastatin Calcium 40 mg 03/10/19 22:00 03/10/19 22:28 Lipitor PO 40 mg QHS COBY Administration Diphenhydramine HCl 25 mg 03/10/19 23:53 03/11/19 01:12 Benadryl PO 25 mg Q6H PRN Administration Itching Enoxaparin Sodium 40 mg 03/10/19 21:00 03/10/19 22:28 Lovenox SUB-Q 40 mg QDAY@2200 COBY Administration Methylprednisolone Sodium Succinate 40 mg 03/10/19 22:00 03/11/19 05:45 Solu-Medrol IV 40 mg Q8HR COBY Administration Nicotine 14 mg 03/10/19 23:00 03/11/19 01:11 Habitrol TD 14 mg QDAY@2200 COBY Administration Nitroglycerin 0.4 mg 03/10/19 20:16 Nitrostat SL Q5M PRN Chest Pain Ondansetron HCl 4 mg 03/10/19 20:14 Zofran IV Q8H PRN Nausea And Vomiting Oxycodone/Acetaminophen 1 tab 03/11/19 09:55 03/11/19 10:21 Percocet 5/325 PO 1 tab Q6H PRN Administration Pain, Moderate (4-6) Sodium Chloride 10 ml 03/10/19 22:00 03/11/19 10:23 Sodium Chloride Flush Syringe 10 Ml IV 10 ml BID COBY Administration Sodium Chloride 10 ml 03/10/19 20:14 03/10/19 22:30 Sodium Chloride Flush Syringe 10 Ml IV 10 ml PRN PRN Administration LINE FLUSH
[2019-03-11] MEDS: TYLENOL PO PRN (15:18)
[2019-03-11] MEDS: LOVENOX SUB-Q SCH (21:01)
[2019-03-11] MEDS: NORCO 10/325 PO PRN (22:57)
[2019-03-12] MEDS: PERCOCET 5/325 PO PRN (02:32)
[2019-03-12] MEDS: NORCO 10/325 PO PRN (05:18)
--- NOTE | 2019-03-12 07:35 | Progress Note ---
Assessment and Plan Assessment and plan: 48-year-old -[place] female who is a nonsmoker with history of degenerative disc disease, and emphysema presents [facility] ED via EMS with complaints of substernal chest pain and shortness of breath. 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 EMS was called and she was transported to our facility. She describes her pain as pressure and rates it 4 -5 /10. It is non-radiating and there are no aggravating or relieving factors. She states that her dyspnea is at rest. She is unable to lie flat and experiences orthopnea. According to patient she experienced two syncopal episodes. This is questionable and has not been confirmed by medical personnel. Furthermore patient states she has history of coronary artery disease and an STEMI. There is no evidence of CABG or stent placement and she denies being on antihypertensive, heart failure medication. Of note, pt states that she eats "carpet and strings". She has been doing so for several years. She states that she checks her stool, and that all "carpet fibers and strings" consumed are passed in stool. atypical Chest pain - Cardiac events are negative, EKG sinus rhythm no murmur findings - Cardiology consulted and recommend diagnostic coronary CTA, or coronary angiography - We'll follow recommendation - Pain control - CTA is negative Psychiatric illness - Patient said she is eating carpet fibers and strings - Mental health evaluation pending History of emphysema - Currently patient denies any shortness of breath - Continue albuterol when necessary DUB obtain US DVT prophylaxis; Lovenox Disposition; patient will be here for workup till Wednesday, F/u psych input History Interval history: Review of systems Constitutional: No fevers, no malaise, no joint pains CVS: c.o chest pain, no orthopnea, no dyspnea on exertion, no pedal edema GI: No abdominal pain, no diarrhea, no vomiting, no constipation Respiratory: No shortness of breath, no wheezing, no coughing Hospitalist Physical - Physical exam Narrative exam: Not in cardiopulmonary distress. The patient is obese. Vital signs as documented. Head exam is unremarkable. No scleral icterus . Neck is without jugular venous distension, thyromegaly, or carotid bruits. Lungs are clear to auscultation. Cardiac exam reveals regular rate and Rhythm. Abdominal exam reveals normal bowel sounds, no masses, no organomegaly and no aortic enlargement. Extremities are nonedematous and both femoral and pedal pulses are normal. JOCKEY AGENT: Alert and oriented 3. No focal weakness. - Constitutional Vitals: Temp Pulse Resp BP Pulse Ox 97.7 F 76 20 109/46 100 03/12/19 05:20 03/12/19 05:20 03/12/19 05:20 03/12/19 05:20 03/12/19 05:20 Results - Labs CBC & Chem 7: 03/14/19 04:14 03/14/19 04:14 Labs: Laboratory Last Values WBC 8.8 K/mm3 (4.5-11.0) 03/11/19 04:04 RBC 4.08 M/mm3 (3.65-5.03) 03/11/19 04:04 Hgb 9.7 gm/dl (10.1-14.3) L 03/11/19 04:04 Hct 30.8 % (30.3-42.9) 03/11/19 04:04 MCV 76 fl (79-97) L 03/11/19 04:04 MCH 24 pg (28-32) L 03/11/19 04:04 MCHC 32 % (30-34) 03/11/19 04:04 RDW 21.2 % (13.2-15.2) H 03/11/19 04:04 Plt Count 278 K/mm3 (140-440) 03/11/19 04:04 Lymph % (Auto) 11.5 % (13.4-35.0) L 03/11/19 04:04 [place] % (Auto) 2.2 % (0.0-7.3) 03/11/19 04:04 Eos % (Auto) 0.1 % (0.0-4.3) 03/11/19 04:04 Baso % (Auto) 0.5 % (0.0-1.8) 03/11/19 04:04 Lymph # 1.0 K/mm3 (1.2-5.4) L 03/11/19 04:04 [place] # 0.2 K/mm3 (0.0-0.8) 03/11/19 04:04 Eos # 0.0 K/mm3 (0.0-0.4) 03/11/19 04:04 Baso # 0.0 K/mm3 (0.0-0.1) 03/11/19 04:04 Seg Neutrophils % 85.7 % (40.0-70.0) H 03/11/19 04:04 Seg Neutrophils # 7.6 K/mm3 (1.8-7.7) 03/11/19 04:04 PT 12.9 Sec. (12.2-14.9) 03/10/19 15:41 INR 0.92 (0.87-1.13) 03/10/19 15:41 APTT 31.8 Sec. (24.2-36.6) 03/10/19 15:41 504.38 ng/mlDDU (0-234) H 03/10/19 15:41 Sodium 136 mmol/L (137-145) L 03/11/19 04:04 Potassium 4.4 mmol/L (3.6-5.0) 03/11/19 04:04 Chloride 103.6 mmol/L (98-107) 03/11/19 04:04 Carbon Dioxide 24 mmol/L (22-30) 03/11/19 04:04 13 mmol/L 03/11/19 04:04 BUN 11 mg/dL (7-17) 03/11/19 04:04 1.0 mg/dL (0.7-1.2) 03/11/19 04:04 Estimated GFR > 60 ml/min 03/11/19 04:04 11 % 03/11/19 04:04 Glucose 157 mg/dL (65-100) H 03/11/19 04:04 POC Glucose 78 (70-105) 03/10/19 15:34 Calcium 8.8 mg/dL (8.4-10.2) 03/11/19 04:04 0.20 mg/dL (0.1-1.2) 03/10/19 15:42 AST 20 units/L (5-40) 03/10/19 15:42 ALT 16 units/L (7-56) 03/10/19 15:42 64 units/L (35-129) 03/10/19 15:42 < 0.010 ng/mL (0.00-0.029) 03/10/19 20:40 NT-Pro-B Natriuret Pep 442.3 pg/mL (0-450) 03/10/19 15:42 6.8 g/dL (6.3-8.2) 03/10/19 15:42 3.6 g/dL (3.9-5) L 03/10/19 15:42 1.1 % 03/10/19 15:42 Triglycerides 153 mg/dL (2-149) H 03/10/19 20:40 Cholesterol 147 mg/dL (50-199) 03/10/19 20:40 58 mg/dL (50-130) 03/10/19 20:40 67 mg/dL (40-59) H 03/10/19 20:40 2.19 % 03/10/19 20:40 HCG, Qual Negative (Negative) 03/10/19 15:34 Active Medications - Current Medications Current Medications: Generic Name Dose Route Start Last Admin Trade Name Freq PRN Reason Stop Dose Admin Acetaminophen 650 mg 03/10/19 20:14 03/11/19 15:18 Tylenol PO 650 mg Q4H PRN Administration Pain MILD(1-3)/Fever >100.5/QUINN Acetaminophen/Hydrocodone Bitart 1 each 03/11/19 22:42 03/12/19 05:18 [place] 10/325 PO 1 each Q6H PRN Administration Pain , Severe (7-10) Albuterol 2.5 mg 03/10/19 20:14 Proventil IH Q3HRT PRN Shortness Of Breath Aspirin 81 mg 03/11/19 10:00 03/11/19 10:21 Baby Aspirin PO 81 mg QDAY COBY Administration Atorvastatin Calcium 40 mg 03/10/19 22:00 03/11/19 21:01 Lipitor PO 40 mg QHS COBY Administration Diphenhydramine HCl 25 mg 03/10/19 23:53 03/11/19 01:12 Benadryl PO 25 mg Q6H PRN Administration Itching Enoxaparin Sodium 40 mg 03/10/19 21:00 03/11/19 21:01 Lovenox SUB-Q 40 mg QDAY@2200 COBY Administration Nicotine 14 mg 03/10/19 23:00 03/11/19 21:00 Habitrol TD 14 mg QDAY@2200 COBY Administration Nitroglycerin 0.4 mg 03/10/19 20:16 Nitrostat SL Q5M PRN Chest Pain Ondansetron HCl 4 mg 03/10/19 20:14 Zofran IV Q8H PRN Nausea And Vomiting Oxycodone/Acetaminophen 1 tab 03/11/19 09:55 03/12/19 02:32 Percocet 5/325 PO 1 tab Q6H PRN Administration Pain, Moderate (4-6) Sodium Chloride 10 ml 03/10/19 22:00 03/11/19 21:02 Sodium Chloride Flush Syringe 10 Ml IV 10 ml BID COBY Administration Sodium Chloride 10 ml 03/10/19 20:14 03/10/19 22:30 Sodium Chloride Flush Syringe 10 Ml IV 10 ml PRN PRN Administration LINE FLUSH
[2019-03-12] MEDS: BABY ASPIRIN PO SCH (10:22)
[2019-03-12] MEDS: ULTRAM PO PRN ×2 (10:23→19:47)
[2019-03-12] MEDS: SODIUM CHLORIDE FLUSH SYRINGE 10 ML IV SCH ×2 (10:23→21:26)
--- NOTE | 2019-03-12 12:59 | Progress Note ---
Assessment and Plan - Patient Problems (1) Syncope Current Visit: Yes Status: Acute Qualifiers: Syncope type: unspecified Qualified Code(s): R55 - Syncope and collapse Plan to address problem: Patient with atypical chest pain and syncope, etiology of the chest pain is uncertain, syncope appears possibly vasovagal, although malingering cannot be excluded. At this point, a stress test will not be helpful, and patient states she is unable to lay flat. Optimal strategies for further evaluation will be a coronary CTA or diagnostic coronary angiography. Cardiac catheterization will be scheduled for tomorrow morning. Risks and benefits have been discussed with the patient and she consents to proceed. Subjective Date of service: 03/12/19 Interval history: The patient reported to our office yesterday, complaining of severe chest pain, EKG during the chest pain was normal with no ischemic ST changes. There was also a transient episode of syncope, during which EKG remained stable sinus rhythm with no ischemic EKG changes. Blood pressure was also normal. The observed episode of syncope appeared vasovagal, but curiously without any hemodynamic changes, making the suspicion of malingering to be a consideration in this setting. Further workup in the emergency room has also been normal, including a CT chest PE protocol, chest x-ray, serial ECGs and serial cardiac enzymes. Objective Vital Signs Temp Pulse Resp Resp BP BP Pulse Ox 03/12/19 08:12 87 18 133/85 100 03/12/19 07:39 72 03/12/19 05:20 97.7 F 76 20 109/46 100 03/12/19 00:41 97.8 F 89 20 117/65 100 03/11/19 21:00 75 03/11/19 19:42 98.0 F 71 18 125/76 99 03/11/19 18:00 74 03/11/19 16:42 98.4 F 18 119/71 03/11/19 16:18 20 03/11/19 15:18 20 03/11/19 13:00 20 - Physical Examination General: No Apparent Distress HEENT: Positive: PERRL Neck: Positive: neck supple Cardiac: Positive: Reg Rate and Rhythm Lungs: Positive: clear to auscultation Neuro: Positive: Grossly Intact Abdomen: Positive: Soft Skin: Positive: Clear Extremities: Absent: edema
[2019-03-12] MEDS ORDERED: NACL 0.9% 500 ML 500 ML IV SCH (13:00)
--- NOTE | 2019-03-12 16:46 | Ultrasound Report ---
EXAM: US TRANSVAGINAL HISTORY: abnormal DUB TECHNIQUE: A transabdominal scan was initially performed. Transvaginal scan was performed to optimall y evaluate the adnexal regions which were poorly visualized on the transabdominal scan. COMPARISON: None available. FINDINGS: TRANSABDOMINAL SCAN: The uterus is anteverted. The uterus is mildly enlarged, measuring approximately 10.6 cm cephalocaudad by 7.6 cm transverse by 7.5 cm AP. There is a soft tissue mass/fibroid within the anterior fundus of the uterus. The endometrial stripe is poorly visualized but grossly unremarkab le. No gross adnexal mass is seen. The ovaries are not visualized. No free fluid is seen in the pelvi s. TRANSVAGINAL SCAN: The uterus is enlarged. There is an approximately 7.4 cm x 5.1 cm x 6.6 cm soft ti ssue mass/fibroid within the anterior fundus of the uterus. Thickened endometrium (12.9 mm); DDX incl udes (but is not limited to) secretory phase endometrium, endometrial hyperplasia, and decidual react ion in the appropriate clinical setting; cannot rule out endometrial carcinoma. Recommend followup ev aluation in no more than 1.5 to 2 menstrual cycles to assess interval change. Both ovaries are not visualized. No adnexal mass or free fluid is seen in the pelvis. IMPRESSION: 1. Approximately 7.4 cm x 5.1 cm x 6.6 cm soft tissue mass/fibroid within the anterior fundus of the uterus. 2. Thickened endometrium (12.9 mm); DDX includes (but is not limited to) secretory phase endometrium , endometrial hyperplasia, and decidual reaction in the appropriate clinical setting; cannot rule out endometrial carcinoma. Recommend followup evaluation in no more than 1.5 to 2 menstrual cycles to as sess interval change. 3. The ovaries are not visualized. This document is electronically signed by Christi Barraza MD., March 12 2019 04:44:41 PM ET
--- NOTE | 2019-03-12 16:48 | Ultrasound Report ---
EXAM: TRANSABDOMINAL PELVIC ULTRASOUND HISTORY: abnormal DUB TECHNIQUE: A transabdominal scan was initially performed. Transvaginal scan was performed to optimall y evaluate the adnexal regions which were poorly visualized on the transabdominal scan. COMPARISON: None available. FINDINGS: TRANSABDOMINAL SCAN: The uterus is anteverted. The uterus is mildly enlarged, measuring approximately 10.6 cm cephalocaudad by 7.6 cm transverse by 7.5 cm AP. There is a soft tissue mass/fibroid within the anterior fundus of the uterus, with effacement of the endometrium. The endometrial stripe is poor ly visualized but grossly unremarkable. No gross adnexal mass is seen. The ovaries are not visualized . No free fluid is seen in the pelvis. TRANSVAGINAL SCAN: The uterus is enlarged. There is an approximately 7.4 cm x 5.1 cm x 6.6 cm soft ti ssue mass/fibroid within the anterior fundus of the uterus. Thickened endometrium (12.9 mm); DDX incl udes (but is not limited to) secretory phase endometrium, endometrial hyperplasia, and decidual react ion in the appropriate clinical setting; cannot rule out endometrial carcinoma. Recommend followup ev aluation in no more than 1.5 to 2 menstrual cycles to assess interval change. Both ovaries are not visualized. No adnexal mass or free fluid is seen in the pelvis. IMPRESSION: 1. Approximately 7.4 cm x 5.1 cm x 6.6 cm soft tissue mass/fibroid within the anterior fundus of the uterus. 2. Thickened endometrium (12.9 mm); DDX includes (but is not limited to) secretory phase endometrium , endometrial hyperplasia, and decidual reaction in the appropriate clinical setting; cannot rule out endometrial carcinoma. Recommend followup evaluation in no more than 1.5 to 2 menstrual cycles to as sess interval change. 3. The ovaries are not visualized. This document is electronically signed by Christi Barraza MD., March 12 2019 04:46:15 PM ET
[2019-03-12] MEDS ORDERED: NEURONTIN ONE (19:47)
[2019-03-12] MEDS: HABITROL TD SCH (21:25)
[2019-03-12] MEDS: LOVENOX SUB-Q SCH (21:25)
[2019-03-13] MEDS: ULTRAM PO PRN ×3 (02:35→17:59)
[2019-03-13 05:18] LABS: INR 0.92 (0.87-1.13)
--- NOTE | 2019-03-13 08:55 | Progress Note ---
Assessment and Plan - Patient Problems (1) Acute chest pain Current Visit: Yes Status: Acute Plan to address problem: Workup in progress jung and María at the neck to be negative patient be worked up for possible cardiac cath scheduled for today (2) Hypertension Current Visit: Yes Status: Acute Qualifiers: Hypertension type: essential hypertension Qualified Code(s): I10 - Essential (primary) hypertension Plan to address problem: Blood pressure stable continue current medication (3) Syncope Current Visit: Yes Status: Acute Qualifiers: Syncope type: unspecified Qualified Code(s): R55 - Syncope and collapse Plan to address problem: Currently asymptomatic we'll review echo reports as well as carotid ultrasound (4) Menorrhagia with irregular cycle Current Visit: Yes Status: Acute Plan to address problem: Patient about surgical by zoology teacher had pelvic ultrasound done yesterday we will follow-up. Patient already has an outpatient follow-up with her zoology teacher as outpatient post ongoing evaluation for chest pain Subjective Date of service: 03/13/19 Principal diagnosis: acute chest pain, syncope Interval history: Patient seen and examined. Patient is well-known to our service from outpatient follow-up admitted following episodes of syncope while being evaluated in the office and now currently being worked up for acute chest pain. Patient stated that she started having chest pain and feeling dizzy intermittently associated s hortness of breath no nausea or vomiting no fever reported. Patient also has ongoing vaginal bleeding for which she is already being evaluated by HEAT TREATING FURNACE TENDER as outpatient. Vitals stable Objective - Exam Narrative Exam: GENERAL: Patient is not in acute distress. Jaundiced no cyanosis no acute distress obese HEENT: Patient is not pale, not jaundiced, not cyanosed. NECK: No JVD, no thyroid enlargement and no lymphadenopathy. CHEST/LUNGS: Good air exchange bilaterally, no wheeze, no rales and no rhonchi. No chest wall tenderness, percussion is normal, symmetrical chest wall. HEART/CARDIOVASCULAR: Regular rate and rhythm, S1 and S2 only, no murmur. ABDOMEN: Abdomen is soft, nondistended, no guarding, no rebound tenderness, no masses palpable per abdomen, active bowel sounds. SKIN: Warm and dry, no rash. NEURO: Awake, alert, oriented x3, speech normal. Power 5/5 in all the extremities. EXTREMITIES: No pedal edema, good peripheral pulses, no finger or toe clubbing. - Constitutional Vitals: Vital Signs - 12hr 03/12/19 03/13/19 03/13/19 22:00 00:09 00:50 Temperature 98.0 F Pulse Rate 60 64 58 L Respiratory 18 Rate Blood Pressure 125/78 O2 Sat by Pulse 99 Oximetry 03/13/19 03/13/19 03/13/19 02:35 04:39 05:34 Temperature 98.0 F Pulse Rate 58 L 54 L Respiratory 18 18 Rate Blood Pressure 120/66 O2 Sat by Pulse 99 Oximetry - Labs CBC & Chem 7: 03/11/19 04:04 03/11/19 04:04
[2019-03-13] MEDS: BABY ASPIRIN PO SCH (09:27)
[2019-03-13] MEDS: SODIUM CHLORIDE FLUSH SYRINGE 10 ML IV SCH ×2 (09:27→22:17)
[2019-03-13] MEDS: TYLENOL PO SCH ×2 (09:28→22:17)
[2019-03-13] MEDS ORDERED: NACL 0.9% 500 ML 500 ML IV SCH (10:00)
[2019-03-13] MEDS ORDERED: HEPARIN/NS 5000 UNIT/500ML(CATH LAB) 1,000 ML IR ONE (10:30)
[2019-03-13] MEDS ORDERED: VERSED ONE (10:30)
[2019-03-13] MEDS ORDERED: CALAN ONE (10:31)
[2019-03-13] MEDS ORDERED: NITROGLYCERIN SYRINGE 3 ML ONE (10:31)
[2019-03-13] MEDS ORDERED: HEPARIN 10,000 UNITS/10 ML ONE (10:31)
[2019-03-13] MEDS: XYLOCAINE 2% INFILTRATI ONE ×3 (11:50→11:54)
[2019-03-13] MEDS: SUBLIMAZE ONE ×2 (11:54→12:19)
[2019-03-13] MEDS ORDERED: XYLOCAINE 2% INFILTRATI ONE (12:02)
--- NOTE | 2019-03-13 12:47 | Progress Note ---
Assessment and Plan - Patient Problems (1) Chest pain Current Visit: Yes Status: Acute Plan to address problem: Atypical chest pain as described, with normal ECGs during active chest pain complaint. Cardiac catheterization today demonstrates angiographically normal coronary arteries, well preserved left ventricle systolic function. No further cardiac workup is indicated, we'll defer to internal medicine for further management of noncardiac chest pain. (2) Syncope Current Visit: Yes Status: Acute Qualifiers: Syncope type: unspecified Qualified Code(s): R55 - Syncope and collapse Plan to address problem: Syncope appears possibly vasovagal, although malingering cannot be excluded. No further cardiac workup is indicated. Subjective Date of service: 03/13/19 Principal diagnosis: acute chest pain, syncope Interval history: A cardiac catheterization was completed via the right femoral artery, no complications. Findings: Angiographically normal coronary arteries, right dominant system, well preserved left ventricle systolic function, ejection fraction 50-55%. Objective Vital Signs Temp Pulse Resp BP Pulse Ox 03/13/19 07:49 98.6 F 57 L 18 112/67 97 03/13/19 05:34 54 L 03/13/19 04:39 98.0 F 58 L 18 120/66 99 03/13/19 02:35 18 03/13/19 00:50 58 L 03/13/19 00:09 98.0 F 64 18 125/78 99 03/12/19 22:00 60 03/12/19 19:04 98.0 F 66 18 110/61 100 - Physical Examination General: No Apparent Distress HEENT: Positive: PERRL Neck: Positive: neck supple Cardiac: Positive: Reg Rate and Rhythm Lungs: Positive: Decreased Breath Sounds Neuro: Positive: Grossly Intact Abdomen: Positive: Soft Skin: Positive: Clear Extremities: Absent: edema - Labs and Meds Coagulation 03/13/19 Range/Units 04:43 PT 12.9 (12.2-14.9) Sec. INR 0.92 (0.87-1.13)
[2019-03-13] MEDS ORDERED: NACL 0.9% 1000 ML 1,000 ML IV SCH (13:00)
--- NOTE | 2019-03-13 13:51 | Cardiac Catherization Report ---
PRIMARY CARE PHYSICIAN: Dr. Matthews REASON FOR PROCEDURE: The patient is a 48-year-old woman hospitalized with chest pain, cardiac catheterization was recommended for chest pain evaluation. PROCEDURES: 1. Left heart catheterization. 2. Selective left and right coronary angiography. 3. Left ventricle angiography. 4. Sedation time: Start, 11:47 and end, 12:22. The patient was prepped and draped in a sterile fashion after informed consent. The right femoral artery was entered using the Seldinger technique followed by placement of a 6-Occitan sheath. Similarly, a 5-Occitan sheath was placed in the right femoral vein, placed for IV access. Selective left and right coronary angiography was performed using #4 left Rick catheter. Due to the anterior location of the right coronary ostium, optimal cannulization was obtained using a 6-Occitan multipurpose catheter. The multipurpose was then used for left ventricular angiography. The catheters were then removed, sheath removed, and hemostasis achieved at the femoral arterial site using an Angio-Seal device, and at the venous sites using manual compression. The patient was returned to the postprocedure unit in stable condition. There were no complications. FINDINGS: HEMODYNAMICS: Left ventricle end diastolic pressure was 23, following coronary angiography. Ascending aortic pressure was 143/91. There was no significant pressure gradient on pullback across the aortic valve. CORONARY ANGIOGRAPHY: Left main coronary artery was angiographically normal. The left anterior descending artery and its diagonal branches were angiographically normal. A large bifurcating ramus intermedius artery was also angiographically normal. The circumflex artery and its obtuse marginal branches were angiographically normal. The right coronary artery was dominant. As described, the ostium of this vessel had an anterior location, best cannulated using a multipurpose catheter. This vessel was dominant, and similarly free of significant disease. Left ventricular systolic function was at lower limits of normal with ejection fraction 50-55%. CONCLUSION: 1. Angiographically normal coronary arteries. 2. Well preserved left ventricular systolic function, ejection fraction 50-55%. RECOMMENDATION: Risk factor modification and medical therapy. JOB# [id number] CA/NTS
[2019-03-13] MEDS: TYLENOL PO PRN (18:44)
[2019-03-13] MEDS: HABITROL TD SCH (22:16)
[2019-03-13] MEDS: LOVENOX SUB-Q SCH (22:16)
[2019-03-14] MEDS: ULTRAM PO PRN ×2 (00:22→08:05)
[2019-03-14 04:48] LABS: Basophils % (Auto) 0.5 % (0.0-1.8); Eosinophils # (Auto) 0.1 K/mm3 (0.0-0.4); Hematocrit 28.9 % (30.3-42.9); Lymphocytes # (Auto) 2.3 K/mm3 (1.2-5.4); Lymphocytes % (Auto) 46.6 % (13.4-35.0); Mean Corpuscular HGB Conc 31 % (30-34); Mean Corpuscular Volume 77 fl (79-97); Monocytes # (Auto) 0.6 K/mm3 (0.0-0.8); Monocytes % (Auto) 11.8 % (0.0-7.3); Platelet Count 243 K/mm3 (140-440); Red Blood Count 3.74 M/mm3 (3.65-5.03)
[2019-03-14] MEDS: BENADRYL PO PRN (05:03)
[2019-03-14] MEDS: TYLENOL PO PRN (05:05)
[2019-03-14 05:09] LABS: Alanine Aminotransferase 13 units/L (7-56); Albumin 2.8 g/dL (3.9-5); BUN/Creatinine Ratio 15; Blood Urea Nitrogen 17 mg/dL (7-17); Calcium 8.6 mg/dL (8.4-10.2); Hemolysis Index 4
--- NOTE | 2019-03-14 08:38 | Discharge Summary ---
Providers - Providers Date of Admission: 03/12/19 07:36 Date of discharge: 03/14/19 Attending physician: YELENA MEADE 03/10/19 Consult to Cardiac Rehabilitation [CONS] Routine Reason For Exam: Phase I 03/10/19 20:14 Consult to Cardiology [CONS] Routine Consulting Provider: JUANJOSE CORREA Reason For Exam: CP, near syncopal event x2 03/10/19 20:41 Consult to Mental Health [CONS] Routine Reason For Exam: mental health eval, pt eats carpet and string Place consult to:: y Notified:: y Was contact made?: Yes 03/13/19 12:41 Consult to Cardiac Rehabilitation [CONS] Routine Reason For Exam: Cardiac Rehab Evaluation Primary care physician: [facility] Hospital[facility] Reason for admission: chest pain Condition: Fair Pertinent studies: Cardiac catheterization shows normal coronary arteries with normal ventricular function ejection fraction 55% Procedures: Cardiac catheterization with normal coronaries Hospital course: 48-year-old female who was admitted initially to the [facility] transferred to our service was also admitted on account of chest pain which has been ongoing for 2 days prior to presentation test is not related to physical activity is left-sided nonradiating not associated with nausea or vo miting. Patient was also reported to heart separate episodes of syncope one occurring and integrated circuit design engineer office. Patient was referred to the emergency room and subsequently admitted to telemetry. Patient was also being evaluated as outpatient for menorrhagia with plans to follow with Dr. Apodaca for subsequent additional management. Patient continued to have intermittent chest wasn't hospital I will subsequently taken to Nursing Specialist cardiac catheterization which subsequently showed normal coronary arteries with no evidence of blockage murmur or cardiac ventricular function ejection fraction approximately 55%. Patient is now assessed to be stable enough for discharge to follow up with us in the office. Disposition: TO HOME OR SELFCARE - Discharge Diagnoses (1) Acute chest pain Status: Resolved (2) Hypertension Status: Chronic Qualifiers: Hypertension type: essential hypertension Qualified Code(s): I10 - Essential (primary) hypertension Comment: Continue all current medications blood pressure stable (3) Syncope Status: Resolved Qualifiers: Syncope type: unspecified Qualified Code(s): R55 - Syncope and collapse Comment: Cardiac: Negative for arrhythmia, cardiac catheterization showed normal coronaries (4) Menorrhagia with irregular cycle Status: Chronic Comment: Patient to follow up with Dr. Apodaca gynecologists as outpatient for the workup Core Measure Documentation - Palliative Care Palliative Care/ Comfort Measures: Not Applicable - Core Measures Any of the following diagnoses?: none Exam - Physical Exam Narrative exam: GENERAL: Patient is not in acute distress. Jaundiced no cyanosis no acute distress obese HEENT: Patient is not pale, not jaundiced, not cyanosed. NECK: No JVD, no thyroid enlargement and no lymphadenopathy. CHEST/LUNGS: Good air exchange bilaterally, no wheeze, no rales and no rhonchi. No chest wall tenderness, percussion is normal, symmetrical chest wall. HEART/CARDIOVASCULAR: Regular rate and rhythm, S1 and S2 only, no murmur. ABDOMEN: Abdomen is soft, nondistended, no guarding, no rebound tenderness, no masses palpable per abdomen, active bowel sounds. SKIN: Warm and dry, no rash. NEURO: Awake, alert, oriented x3, speech normal. Power 5/5 in all the extremi ties. EXTREMITIES: No pedal edema, good peripheral pulses, no finger or toe clubbing. - Constitutional Vitals: Temp Pulse Resp BP Pulse Ox 97.4 F L 86 17 136/79 100 03/14/19 00:33 03/14/19 05:03 03/14/19 05:03 03/14/19 04:55 03/14/19 04:55 Plan Activity: no restrictions Weight Bearing Status: Full Weight Bearing Diet: regular Follow up with: LUPILLO GAXIOLA MD [Primary Care Provider] - 3-5 Days
[2019-03-14 08:49] VITALS: BP 120/57
[2019-03-14] MEDS: BABY ASPIRIN PO SCH (09:41)
[2019-03-14] MEDS: SODIUM CHLORIDE FLUSH SYRINGE 10 ML IV SCH (09:41)
--- NOTE | 2019-03-14 10:14 | Progress Note ---
Assessment and Plan Atypical chest pain normal coronaries, EF 50-55% by [facility] this admission Syncope, likely vasovagal Tobacco abuse Advised tobacco cessation. Otherwise, stable for discharge home today. Patient will follow up with her primary wellness program administrator in 5-7 days. Subjective Date of service: 03/14/19 Principal diagnosis: acute chest pain, syncope Interval history: Patient has no complaints. She denies chest pain. Objective Vital Signs Temp Pulse Pulse Resp Resp BP BP 03/14/19 09:05 18 03/14/19 08:47 98.1 F 65 18 120/57 03/14/19 05:03 86 17 03/14/19 04:55 56 L 22 136/79 03/14/19 04:53 86 17 03/14/19 00:33 97.4 F L 53 L 20 133/77 03/13/19 23:00 20 03/13/19 22:00 62 03/13/19 20:37 98.0 F 62 20 137/79 03/13/19 19:32 03/13/19 17:34 98.0 F 65 18 153/83 03/13/19 14:00 65 123/57 03/13/19 13:45 98.1 F 66 19 101/60 03/13/19 13:44 61 126/78 03/13/19 13:22 98.2 F 60 18 143/90 03/13/19 13:08 60 143/90 03/13/19 13:00 97.8 F 62 18 128/74 Pulse Ox 03/14/19 09:05 03/14/19 08:47 98 03/14/19 05:03 03/14/19 04:55 100 03/14/19 04:53 03/14/19 00:33 100 03/13/19 23:00 98 03/13/19 22:00 03/13/19 20:37 96 03/13/19 19:32 100 03/13/19 17:34 97 03/13/19 14:00 03/13/19 13:45 98 03/13/19 13:44 92 03/13/19 13:22 03/13/19 13:08 99 03/13/19 13:00 - Physical Examination General: No Apparent Distress HEENT: Positive: PERRL Neck: Positive: neck supple Cardiac: Positive: Reg Rate and Rhythm Lungs: Positive: Decreased Breath Sounds Neuro: Positive: Grossly Intact Abdomen: Positive: Soft Incision: Cardiac Cath Site (right groin) Extremities: Absent: edema - Labs and Meds Cardiac Enzymes 03/14/19 Range/Units 04:14 AST 14 (5-40) units/L CBC 03/14/19 Range/Units 04:14 WBC 4.9 (4.5-11.0) K/mm3 RBC 3.74 (3.65-5.03) M/mm3 Hgb 9.0 L (10.1-14.3) gm/dl Hct 28.9 L (30.3-42.9) % Plt Count 243 (140-440) K/mm3 Lymph # 2.3 (1.2-5.4) K/mm3 Young # 0.6 (0.0-0.8) K/mm3 Eos # 0.1 (0.0-0.4) K/mm3 Baso # 0.0 (0.0-0.1) K/mm3 Comprehensive Metabolic Panel 03/14/19 Range/Units 04:14 Sodium 138 (137-145) mmol/L Potassium 4.9 (3.6-5.0) mmol/L Chloride 101.4 (98-107) mmol/L Carbon Dioxide 28 (22-30) mmol/L BUN 17 (7-17) mg/dL Creatinine 1.1 (0.7-1.2) mg/dL Glucose 90 (65-100) mg/dL Calcium 8.6 (8.4-10.2) mg/dL AST 14 (5-40) units/L ALT 13 (7-56) units/L Alkaline Phosphatase 50 (35-129) units/L Total Protein 5.7 L (6.3-8.2) g/dL Albumin 2.8 L (3.9-5) g/dL
== END 2019-03-14 12:30 | disposition home or self-care (01) | DRG 287 ==
LOC: ED 15:21 → 4A 20:14 → OBSVTOIN 03-12 07:36
PROVIDERS: ADMIT Internal Medicine; ATTEND Internal Medicine
PROC: 4A023N7 Measurement of Cardiac Sampling and Pressure, Left Heart, Percutaneous Approach (ICD-10-PCS; principal; 2019-03-13)
PROC: B2111ZZ Fluoroscopy of Multiple Coronary Arteries using Low Osmolar Contrast (ICD-10-PCS; 2019-03-13)
PROC: B2151ZZ Fluoroscopy of Left Heart using Low Osmolar Contrast (ICD-10-PCS; 2019-03-13)
DX: R07.89 Other chest pain (principal); R55 Syncope and collapse; N92.0 Excessive and frequent menstruation with regular cycle; I25.10 Atherosclerotic heart disease of native coronary artery without angina pectoris; I25.2 Old myocardial infarction; F17.210 Nicotine dependence, cigarettes, uncomplicated; J43.9 Emphysema, unspecified; I10 Essential (primary) hypertension
CPT/HCPCS: 36415; 71045; 71275; 76830; 76856; 80048; 80053; 80061; 82962; 83880; 84484; 84703; 85025; 85379; 85610; 85730; 93005; 93010; 93458; 94640; 94760; 99406; G0378; A9270-GY; C1760; C1769; C1894; J1170; J1644; J1650; J2250; J2270; J2920; J3010; J7030; J7040; Q9967

== ENCOUNTER 2019-06-20 07:47 | Observation (INO) | payer MEDICAID, OTHER ==
[2019-05-31 12:17] LABS: Basophils # (Auto) 0.1 K/mm3 (0.0-0.1); Basophils % (Auto) 1.1 % (0.0-1.8); Eosinophils # (Auto) 0.1 K/mm3 (0.0-0.4); Eosinophils % (Auto) 2.3 % (0.0-4.3); Hematocrit 33.4 % (30.3-42.9); Hemoglobin 10.6 gm/dl (10.1-14.3); Lymphocytes # (Auto) 1.7 K/mm3 (1.2-5.4); Lymphocytes % (Auto) 36.6 % (13.4-35.0); Mean Corpuscular HGB Conc 32 % (30-34); Mean Corpuscular Volume 75 fl (79-97); Monocytes # (Auto) 0.5 K/mm3 (0.0-0.8); Monocytes % (Auto) 10.3 % (0.0-7.3); Platelet Count 287 K/mm3 (140-440); Red Blood Count 4.43 M/mm3 (3.65-5.03)
[2019-05-31 12:18] LABS: Red Cell Distribution Width 23.8 % (13.2-15.2)
--- NOTE | 2019-05-31 13:07 | Anesthesia Consultation ---
Anesthesia Consult and Med Hx Date of service: 05/31/19 - Airway Anesthetic Teeth Evaluation: Good ROM Head & Neck: Adequate Mental/Hyoid Distance: Adequate Mallampati Class: Class II Intubation Access Assessment: Good - Pulmonary Exam CTA: Yes - Cardiac Exam Cardiac Exam: RRR - Pre-Operative Health Status ASA Pre-Surgery Classification: ASA2 Proposed Anesthetic Plan: General Nerve Block: TAP Block - Pulmonary Hx Smoking: Yes Hx Pneumonia: No - Cardiovascular System Hx Coronary Artery Disease: Yes Hx Heart Attack/AMI: Yes (Age 26) Hx Heart Murmur: Yes - Central Nervous System Hx Psychiatric Problems: No - Gastrointestinal Hx Ulcer: Yes - Hematic Hx Anemia: Yes - Other Systems Hx Cancer: No - Additional Comments Anesthesia Medical History Comments: Patient requests Dr Whaley- explained that will try and make this happen if possible
[~2019-06-20 07:47] MED LIST: LACTATED RINGERS 1,000 ML IV SCH; NEURONTIN PO NR; VERSED IV NR
--- NOTE | 2019-06-20 08:30 | Anesthesia Day of Surgery ---
Anesthesia Day of Surgery - Day of Surgery Patient Examined: Yes Patient H&P Reviewed: Yes Patient is NPO: Yes
[2019-06-20 09:41] LABS: Hematocrit 33.3 % (30.3-42.9); Hemoglobin 10.7 gm/dl (10.1-14.3)
[2019-06-20] MEDS ORDERED: SUBLIMAZE ONE (10:49)
[2019-06-20] MEDS ORDERED: VERSED ONE (10:50)
[2019-06-20] MEDS ORDERED: MARCAINE-EPI 0.5%-1:200,000 INFILTRATI ONE (10:50)
[2019-06-20] MEDS ORDERED: XYLOCAINE MPF 2% ONE (12:23)
[2019-06-20] MEDS ORDERED: DIPRIVAN 10 MG/ML IV ONE (12:23)
[2019-06-20] MEDS ORDERED: ZEMURON IV ONE (12:23)
[2019-06-20] MEDS ORDERED: DILAUDID ONE (12:23)
[2019-06-20] MEDS ORDERED: NEOSPORIN GU IR ONE ×2 (12:38→14:01)
--- NOTE | 2019-06-20 12:47 | History and Physical Report ---
History of Present Illness Date of examination: 06/20/19 Chief complaint: Symptomatic uterine fibroids History of present illness: Pt is a 48yo BF LMP 06/12/19 presents for surgical evaluation and treatment of uterine fibroids. She complains of prolonged heavy vaginal bleeding and pelvic pain. Pelvic u/s showed the uterus 10.6 x 7.6 x 7.5cm with a 7.4 x 5.1 x 6.6cm fibroid and endometrial biopsy was benign. She desires a Robotic Assisted Total Hysterectomy with ovarian conservation. Past History Past Medical History: heart disease (heart attack with cardiac catherization 03/13/19), GERD Past Surgical History: colorectal surgery, section, other (foot surgery) PARK GUARD History: fibroids Family/Genetic History: none Social history: no significant social history, single Medications and Allergies Allergies Allergy/AdvReac Type Severity Reaction Status Date / Time No Known Allergies Allergy Verified 05/30/19 17:07 Home Medications Medication Instructions Recorded Confirmed Last Taken Type Ferrous Sulfate [Ferrous Sulfate 220 mg PO DAILY 05/30/19 05/30/19 06/19/19 History 220 MG/5 ML] Omeprazole 40 mg PO BID 05/30/19 05/30/19 06/19/19 History medroxyPROGESTERone ACETATE 10 mg PO DAILY 05/30/19 06/20/19 06/19/19 History [Medroxyprogesterone Acetate] metroNIDAZOLE [Flagyl] 500 mg PO DAILY 05/30/19 05/30/19 05/30/19 17:00 History oxyCODONE /ACETAMINOPHEN [Percocet 1 tab PO Q6HR PRN 05/30/19 06/20/19 06/19/19 History 5/325] Active Meds: Active Medications Cefazolin Sodium (Ancef/Sterile Water 2 Gm/20 Ml) 2 gm IV PREOP NR Stop: 06/20/19 23:59 Lactated Ringer's (Lactated Ringers) 1,000 mls @ 100 mls/hr IV DIRECT COBY Last Admin: 06/20/19 09:20 Dose: 100 mls/hr Documented by: Review of Systems All systems: negative - Vital Signs Vital signs: Vital Signs Temp Pulse Resp BP Pulse Ox 98 F 70 20 129/80 99 05/31/19 11:15 05/31/19 11:15 05/31/19 11:15 05/31/19 11:15 05/31/19 11:15 Temp Pulse Resp BP Pulse Ox 98.1 F 95 H 14 131/85 97 06/20/19 08:10 06/20/19 11:53 06/20/19 11:53 06/20/19 11:53 06/20/19 11:53 - Physical Exam Breasts: Positive: deferred Cardiovascular: Regular rate Lungs: Positive: Clear to auscultation Abdomen: Positive: normal appearance Genitourinary (Female): Positive: normal external genitalia Vagina: Positive: normal moisture Uterus: Positive: enlarged Extremities: Positive: normal Results Result Diagrams: 06/20/19 09:20 All other labs normal. Ultrasound: report reviewed Assessment and Plan - Patient Problems (1) Uterine fibroid Onset Date: 06/20/19 Current Visit: Yes Status: Chronic Qualifiers: Uterine leiomyoma location: intramural, submucous, and subserous Qualified Code(s): D25.1 - Intramural leiomyoma of uterus; D25.0 - Submucous leiomyoma of uterus; D25.2 - Subserosal leiomyoma of uterus Plan to address problem: A: Symptomatic uterine fibroids Menorrhagia Anemia P: Admit for a Robotic Assisted Total Hysterectomy with Bilateral salpingectomy (2) Menorrhagia with irregular cycle Onset Date: 06/20/19 Current Visit: No Status: Chronic
[2019-06-20] MEDS ORDERED: ANCEF/STERILE WATER 2 GM/20 ML 2 GM/20 ML SYRINGE IV NR (13:00)
[2019-06-20] MEDS ORDERED: ANCEF/STERILE WATER 2 GM/20 ML IV NR (13:00)
[2019-06-20] MEDS ORDERED: PHENYLEPHRINE/NS Syringe 1,000 MCG/10 ML IV ONE (14:01)
[2019-06-20] MEDS ORDERED: NACL 0.9% IR ONE ×2 (14:02)
[2019-06-20] MEDS ORDERED: LACTATED RINGERS 1,000 ML ONE (15:10)
[2019-06-20] MEDS ORDERED: TYLENOL PO PRN (15:33)
[2019-06-20] MEDS ORDERED: REGLAN IV PRN (15:33)
[2019-06-20] MEDS ORDERED: MILK OF MAGNESIA PO PRN (15:33)
[2019-06-20] MEDS ORDERED: ZOFRAN IV PRN (15:33)
[2019-06-20] MEDS ORDERED: NARCAN 0.4 MG/1 ML IV PRN (15:33)
[2019-06-20] MEDS ORDERED: NORCO 5/325 PO PRN (15:33)
[2019-06-20] MEDS ORDERED: SODIUM CHLORIDE FLUSH SYRINGE 10 ML IV PRN (15:33)
--- NOTE | 2019-06-20 15:38 | Operative Report ---
Operative Report Operative Report: Pre-operative diagnosis: 1. Symptomatic uterine fibroids 2. Menorrhagia 3. Anemia Post-operative diagnosis: Same with extensive uterine and omental adhesions Procedure : 1. Robotic-assisted total hysterectomy 2. Bilateral salpingectomy 3. Lysis of extensive uterine adhesions 4. Lysis of extensive omental adhesions Surgeon: Yovani Apodaca MD Patient Clerical Assistant: Savannah Doshi CSA Anesthesia: JESIKA Block followed by general endotracheal intubation EBL: 200 mL's Findings: A 14 -16 weeks size multi-myomatous uterus densely adherent to the anterior abdominal wall with extensive omental adhesions to the anterior abdominal wall. Fallopian tubes showed evidence of previous tubal ligation with Filshe clips bilaterally and normal left ovary and cystic right ovary. Extensive omental adhesions to the anterior abdominal wall. Procedure: After the patient was first correctly identified, she was prepped and draped in the usual sterile fashion and placed in the dorsolithotomy position. The bladder was first catheterized using Ball catheter and the speculum was placed in the vagina and the anterior lip of the cervix was grasped using a single-tooth tenaculum, and the medium Vesicare cup was placed. The tenaculum and speculum was then removed from the vagina and attention was then turned to the abdomen. The skin knife was used to make a small incision approximately 5 cm above the umbilicus through which a 12 mm trocar was placed under direct visualization. After adequate amount of abdominal insufflation, visualization of the pelvic organs found the uterus to be enlarged and densely adherent to the anterior abdominal wall, extensive omental adhesions to the anterior abdominal wall. The fallopian tubes showed evidence of previous tubal ligation with Filshe clips bilaterally. The left ovary was normal, but the right ovary was cystic. A right and left paramedian incision was made through which the 8 mm trochars were placed under direct visualization and a 5 mm trocar was placed in the right lower quadrant. The patient was then placed in steep Trendelenburg positioning and the robot was docked on the patient's left side. After all the robotic ports were connected and adequate functioning of the robotic arms were tested the surgeon then proceeded to the console to begin the hysterectomy. First the Omental adhesions were taken down, then the dense adhesions from the uterus to the abdominal wall was also taken down to restore normal anatomy. The left round ligament was grasped, cauterized and cut, the left utero-ovarian ligaments were grasped, cauterized and cut, and the left fallopian tube also grasped, cauterized and cut along the mesosalpinx, thus freeing the left ovary from the left uterine sidewall. The same procedure was performed on the right. The right round ligament was grasped, cauterized and cut, the right utero- ovarian ligaments were grasped, cauterized and cut, and the right fallopian tube also grasped, cauterized and cut along the mesosalpinx, thus freeing the right ovary from the right uterine sidewall. The right ovarian cyst was drained of clear straw-colored fluid. The bladder flap was taken down anteriorly and the uterine vessels were grasped, cauterized and cut bilaterally. The cardinal ligaments were sequentially grasped, cauterized and cut down to the level of the uterosacral ligaments. At this time the posterior colpotomy was performed over the Vcare cup, and the cervix was circumscribed beginning posteriorly and meeting anteriorly until the cervix was freed. The cervix and uterus was then removed through the vagina and sent to pathology. The vaginal cuff was then closed using 2-0 Vloc suture in a running fashion. Irrigation was then performed and after good hemostasis was achieved the procedure was considered complete. The Tisseel sealant was then sprayed across the vaginal cuff site, and after excellent hemostasis was assured, Interceed was placed across the vaginal cuff site. The abdominal pressure was reduced to 8 mmHg and excellent hemostasis was assured. All instruments were then removed from the abdominal cavity. Each incision was closed using 0 Vicryl suture in a [id number] configuration on the fascia followed by 4-0 Monocryl suture in a sub-cuticular fashion on the skin. Each incision was also infiltrated using 0.5% Marcaine solution. The vaginal pack was removed. The patient tolerated the procedure well and was transported to the recovery room in stable condition.
[2019-06-20] MEDS ORDERED: D5LR 1,000 ML IV SCH (16:00)
--- NOTE | 2019-06-20 16:14 | Post Anesthesia Evaluation ---
- Post Anesthesia Evaluation Patient Participated: Yes Airway Patent: Yes Stable Respiratory Function: Yes Nausea/Vomiting: No Temp > 96.8F: Yes Pain Manageable: Yes Adequeate Hydration: Yes Anesthesia Complications: No Block Receding Appropriately: Yes Patient on Ventilator: No
[2019-06-20] MEDS: TORADOL IV SCH ×2 (17:46→22:00)
[2019-06-20] MEDS: PERCOCET 5/325 PO PRN (18:28)
[2019-06-20] MEDS: ANCEF/NS 1 GM/50 ML 1 GM/50 ML BAG IV SCH (22:13)
[2019-06-20] MEDS: COLACE PO SCH (22:13)
[2019-06-21] MEDS: PERCOCET 5/325 PO PRN ×3 (00:28→13:58)
[2019-06-21] MEDS: TORADOL IV SCH (03:28)
[2019-06-21] MEDS: ANCEF/NS 1 GM/50 ML 1 GM/50 ML BAG IV SCH (05:26)
[2019-06-21 05:51] LABS: Hematocrit 28.1 % (30.3-42.9)
--- NOTE | 2019-06-21 09:00 | Progress Note ---
Assessment and Plan - Patient Problems (1) Uterine fibroid Onset Date: 06/20/19 Current Visit: Yes Status: Resolved Qualifiers: Uterine leiomyoma location: intramural, submucous, and subserous Qualified Code(s): D25.1 - Intramural leiomyoma of uterus; D25.0 - Submucous leiomyoma of uterus; D25.2 - Subserosal leiomyoma of uterus (2) Menorrhagia with irregular cycle Onset Date: 06/20/19 Current Visit: No Status: Resolved (3) Status post robot-assisted surgical procedure Onset Date: 06/21/19 Current Visit: Yes Status: Resolved Plan to address problem: A: S/P RATH with Bilateral salpingectomy - POD #1 Doing well Asymptomatic anemia - stable P: May go home today. Subjective - Subjective Date of service: 06/21/19 Principal diagnosis: s/p RATH - POD #1 Interval history: Pt is feeling well s/p a Robotic Assisted Total Hysterectomy with Bilateral salpingectomy. She is tolerating a reg diet without nausea or vomiting, ambulating and voiding without difficulty. Patient reports: appetite normal, voiding normally, pain well controlled, flatus, ambulating normally, no dizzy ambulation, no nauseated Objective - Vital Signs Latest vital signs: Vital Signs Temp Pulse Resp BP BP Pulse Ox 06/21/19 05:26 18 06/21/19 04:20 98.3 F 67 20 149/65 94 06/21/19 03:28 18 06/21/19 00:30 98.1 F 67 20 150/96 95 06/21/19 00:28 18 06/20/19 20:45 98.9 F 84 20 166/98 94 06/20/19 19:58 18 06/20/19 16:20 98.1 F 67 16 130/70 100 06/20/19 16:17 97.4 F L 86 14 118/68 100 06/20/19 16:02 88 14 111/66 100 06/20/19 15:57 81 12 121/72 100 06/20/19 15:52 99 H 12 112/73 100 06/20/19 15:47 97.2 F L 98 H 16 88/72 100 06/20/19 11:53 95 H 14 131/85 97 06/20/19 11:48 102 H 16 141/98 98 06/20/19 11:44 87 20 138/97 98 06/20/19 11:39 80 20 129/75 99 06/20/19 11:34 86 19 133/83 100 06/20/19 11:28 77 12 148/79 88 06/20/19 11:23 77 18 144/83 100 06/20/19 11:18 71 18 146/90 100 06/20/19 11:13 76 19 144/91 100 06/20/19 11:09 83 12 139/96 100 06/20/19 10:58 75 21 172/107 94 Intake and Output 06/20/19 06/21/19 06/21/19 22:59 06:59 14:59 Intake Total 460 360 Output Total 900 250 300 Balance -440 110 -300 Intake: IV 100 ANCEF/NS 1 GM/50 ML 1 gm 50 In 50 ml @ 100 mls/hr IV Q8H COUNTS INCLUDE 234 BEDS AT THE [facility] Rx#:[id number] Oral 360 360 Output: Urine 900 250 300 Indwelling Catheter 500 250 Uretheral (Ball) 100 Void 300 Other: Total, Intake Amount 360 360 Total, Output Amount 500 250 300 Voiding Method Toilet # Voids Void 1 Weight 104.326 kg - Exam Breasts: Present: deferred Abdomen: Present: normal appearance, soft Extremities: Present: normal Incision: Present: normal, dry, intact - Labs Labs: Abnormal lab results 06/21/19 Range/Units 05:17 Hgb 9.0 L (10.1-14.3) gm/dl Hct 28.1 L (30.3-42.9) % Laboratory Tests 05/31/19 05/31/19 06/20/19 11:20 11:20 09:20 WBC 4.7 RBC 4.43 Hgb 10.6 Hct 33.4 MCV 75 L MCH 24 L MCHC 32 RDW 23.8 H Plt Count 287 Lymph % (Auto) 36.6 H Finney % (Auto) 10.3 H Eos % (Auto) 2.3 Baso % (Auto) 1.1 Lymph # 1.7 Finney # 0.5 Eos # 0.1 Baso # 0.1 Seg Neutrophils % 49.7 Seg Neutrophils # 2.3 HCG, Qual Negative Blood Type A POSITIVE Antibody Screen Negative 06/20/19 06/20/19 06/21/19 09:20 09:20 05:17 WBC RBC Hgb 10.7 9.0 L Hct 33.3 28.1 L MCV MCH MCHC RDW Plt Count Lymph % (Auto) Finney % (Auto) Eos % (Auto) Baso % (Auto) Lymph # Finney # Eos # Baso # Seg Neutrophils % Seg Neutrophils # HCG, Qual Negative Blood Type Antibody Screen
[2019-06-21] MEDS: COLACE PO SCH (09:51)
--- NOTE | 2019-06-21 10:25 | Discharge Summary ---
Providers - Providers Date of Admission: 06/20/19 15:33 Date of discharge: 06/21/19 Attending physician: CONSUELO APODACA [facility] Reason for admission: other (Symptomatic uterine fibroids; Menorrhagia; Anemia) Procedure: other (Robotic Assisted Total Hysterectomy with Bilateral salpingectomy and Lysis of adhesions) Episiotomy: none Laceration: none Incision: normal, dry, intact Other procedures: none complications: none Discharge diagnosis: other (s/p RATH with Bilateral salpingectomy) Hospital course: Pt is a 48yo BF LMP 06/12/19 who presented for surgical evaluation and treatment of uterine fibroids. She complained of prolonged heavy vaginal bleeding and pelvic pain. Pelvic u/s showed the uterus 10.6 x 7.6 x 7.5cm with a 7.4 x 5.1 x 6.6cm fibroid and endometrial biopsy was benign. She underwent an uncomplicated Robotic Assisted Total Hysterectomy with Bilateral salpingectomy and Lysis of extensive pelvic adhesions, and by POD #1 she was tolerating a reg diet without nausea or vomiting, ambulating and voiding without difficulty. She was therefore discharged to home on POD #1 in stable condition. Condition at discharge: Good Disposition: DC-01 TO HOME OR SELFCARE - Discharge Diagnoses (1) Uterine fibroid Status: Resolved Qualifiers: Uterine leiomyoma location: intramural, submucous, and subserous Qualified Code(s): D25.1 - Intramural leiomyoma of uterus; D25.0 - Submucous leiomyoma of uterus; D25.2 - Subserosal leiomyoma of uterus (2) Menorrhagia with irregular cycle Status: Resolved Comment: Patient to follow up with Dr. Aopdaca gynecologists as outpatient for the workup Plan - Discharge Medications Prescriptions: Ferrous Sulfate [Feosol 325 MG tab] 325 mg PO BID #60 tablet Ibuprofen [Motrin] 800 mg PO Q8HR PRN #30 tablet PRN Reason: Pain, Mild (1-3) Oxycodone HCl/Acetaminophen [Percocet 7.5/325 mg] 1 each PO Q6HR PRN #30 tablet PRN Reason: Pain - Provider Discharge Summary Activity: routine, no sex for 6 weeks, no heavy lifting 4 weeks, no strenuous exercise Diet: routine Instructions: routine Additional instructions: [] Smoking cessation referral if applicable(refer to patient education folder for contact #) [] Refer to [facility]'s [facility] Booklet Call your doctor immediately for: * Fever > 100.5 * Heavy vaginal bleeding ( >1 pad per hour) * Severe persistent headache * Shortness of breath * Reddened, hot, painful area to leg or breast * Drainage or odor from incision. * Keep incision clean and dry at all times and follow doctor's instructions regarding bathing/showering - Follow up plan Follow up: [place] LU[place]O MUNSON MD [Primary Care Provider] - 7 Days CONSUELO APODACA MD [Staff Physician] - 14 Days Forms: [facility] Discharge Summary
[2019-06-21 14:10] VITALS: BP 123/81
== END 2019-06-21 14:45 | disposition home or self-care (01) ==
LOC: OR 07:47 → OB 15:33
PROVIDERS: ADMIT Obstetrics & Gynecology; ATTEND Obstetrics & Gynecology
DX: D25.9 Leiomyoma of uterus, unspecified (principal); N73.6 Female pelvic peritoneal adhesions (postinfective); D64.9 Anemia, unspecified; K21.9 Gastro-esophageal reflux disease without esophagitis; N92.0 Excessive and frequent menstruation with regular cycle; Z79.899 Other long term (current) drug therapy
CPT/HCPCS: 36415; 58571; 64450; 84703; 85014; 85018; 85025; 86850; 86900; 86901; 88307; 96365; 96366; 96375; 96376; A4217; C1765; C9250; G0378; J0690; J1170; J1885; J2250; J2370; J2704; J3010; J7120; J7121; S2900

== ENCOUNTER 2019-07-07 17:08 | Emergency (ER) | payer OTHER ==
--- NOTE | 2019-07-07 17:27 | Event Note ---
ED Screening Note ED Screening Note: two week post op had robotic hysterectomy on June [address] Yovani Apodaca, [employer] ANALYST states she noticed "bulge in one of her incisions" states it has gotten bigger no V/D no fever no drainage PMHx anemia from fibroids, PUD no allergies to meds This initial assessment/diagnostic orders/clinical plan/treatment(s) is/are subject to change based on patients health status, clinical progression and re- assessment by fellow clinical providers in the ED. Further treatment and workup at subsequent clinical providers discretion. Patient/guardian urged not to elope from the ED as their condition may be serious if not clinically assessed and managed. Initial orders include: labs
[2019-07-07 18:53] LABS: Hematocrit 34.2 % (30.3-42.9); Hemoglobin 10.5 gm/dl (10.1-14.3); Mean Corpuscular HGB Conc 31 % (30-34); Mean Corpuscular Volume 80 fl (79-97); Platelet Count 275 K/mm3 (140-440); Red Blood Count 4.28 M/mm3 (3.65-5.03)
[2019-07-07 18:57] LABS: Red Cell Distribution Width 25.7 % (13.2-15.2)
[2019-07-07 19:03] LABS: Alanine Aminotransferase 10 units/L (7-56); Albumin 3.7 g/dL (3.9-5); BUN/Creatinine Ratio 14; Blood Urea Nitrogen 14 mg/dL (7-17); Calcium 8.8 mg/dL (8.4-10.2); Hemolysis Index 7
[2019-07-07] MEDS ORDERED: SODIUM CHLORIDE 0.9% 1000 ML 1,000 ML IV ONE (20:09)
[2019-07-07] MEDS ORDERED: ONDANSETRON 4 MG/2 ML INJ IV PRN (20:09)
[2019-07-07] MEDS ORDERED: MORPHINE 4 MG/1 ML INJ IV ONE (20:09)
--- NOTE | 2019-07-07 20:19 | Emergency Department Report ---
ED General Adult HPI - General Chief complaint: Pain General Stated complaint: SURGERY 06/21...PAIN Time Seen by Provider: 07/07/19 17:23 Source: patient Mode of arrival: Ambulatory Limitations: No Limitations - History of Present Illness Initial comments: pt is a 48 y/o aaf who presents two weeks post op , had robotic hysterectomy on June [address] Yovani Apodaca, SALES ANALYST, states she noticed "bulge in one of her incisions" states it has gotten bigger now with pain and difficult bowel movements. no V/D no fever no drainage PMHx anemia from fibroids, PUD no allergies to meds Onset/Timin -: week(s) Location: abdomen Radiation: abdomen Severity scale (0 -10): 8 Quality: sharp Consistency: constant Improves with: none Worsens with: none Associated Symptoms: denies other symptoms Treatments Prior to Arrival: none - Related Data Home Medications Medication Instructions Recorded Confirmed Last Taken Ferrous Sulfate [Ferrous Sulfate 220 mg PO DAILY 05/30/19 05/30/19 06/19/19 220 MG/5 ML] Omeprazole 40 mg PO BID 05/30/19 05/30/19 06/19/19 medroxyPROGESTERone ACETATE 10 mg PO DAILY 05/30/19 06/20/19 06/19/19 [Medroxyprogesterone Acetate] metroNIDAZOLE [Flagyl] 500 mg PO DAILY 05/30/19 05/30/19 05/30/19 17:00 oxyCODONE /ACETAMINOPHEN [Percocet 1 tab PO Q6HR PRN 05/30/19 06/20/19 06/19/19 5/325] Previous Rx's Medication Instructions Recorded Last Taken Type Ferrous Sulfate [Feosol 325 MG tab] 325 mg PO BID #60 tablet 06/21/19 Unknown Rx Ibuprofen [Motrin] 800 mg PO Q8HR PRN #30 tablet 06/21/19 Unknown Rx Oxycodone HCl/Acetaminophen 1 each PO Q6HR PRN #30 tablet 06/21/19 Unknown Rx [Percocet 7.5/325 mg] HYDROcodone/APAP 5-325 [[place] 1 each PO Q6HR PRN #12 tablet 07/07/19 Unknown Rx 5-325 mg TAB] Allergies Allergy/AdvReac Type Severity Reaction Status Date / Time No Known Allergies Allergy Verified 05/30/19 17:07 ED Review of Systems ROS: Stated complaint: SURGERY 06/21...PAIN Other details as noted in HPI Constitutional: denies: chills, fever Eyes: denies: eye pain, eye discharge, vision change ENT: denies: ear pain, throat pain Respiratory: denies: cough, shortness of breath, wheezing Cardiovascular: denies: chest pain, palpitations Endocrine: no symptoms reported Gastrointestinal: abdominal pain, constipation. denies: nausea, vomiting, diarrhea, hematemesis, melena, hematochezia Genitourinary: denies: urgency, dysuria, discharge Musculoskeletal: denies: back pain, joint swelling, arthralgia Skin: denies: rash, lesions Neurological: denies: headache, weakness, paresthesias Psychiatric: denies: anxiety, depression Hematological/Lymphatic: denies: easy bleeding, easy bruising ED Past Medical Hx - Past Medical History Previous Medical History?: Yes Hx Heart Attack/AMI: Yes (Age 26) Hx GERD: Yes Additional medical history: emphysema - Surgical History Past Surgical History?: Yes Additional Surgical History: LEFT LEG / SPURS / C SECTIONS X 2 - Social History Smoking Status: Current Every Day Smoker Substance Use Type: None - Medications Home Medications: Home Medications Medication Instructions Recorded Confirmed Last Taken Type Ferrous Sulfate [Ferrous Sulfate 220 mg PO DAILY 05/30/19 05/30/19 06/19/19 History 220 MG/5 ML] Omeprazole 40 mg PO BID 05/30/19 05/30/19 06/19/19 History medroxyPROGESTERone ACETATE 10 mg PO DAILY 05/30/19 06/20/19 06/19/19 History [Medroxyprogesterone Acetate] metroNIDAZOLE [Flagyl] 500 mg PO DAILY 05/30/19 05/30/19 05/30/19 17:00 History oxyCODONE /ACETAMINOPHEN [Percocet 1 tab PO Q6HR PRN 05/30/19 06/20/19 06/19/19 History 5/325] Ferrous Sulfate [Feosol 325 MG tab] 325 mg PO BID #60 tablet 06/21/19 Unknown Rx Ibuprofen [Motrin] 800 mg PO Q8HR PRN #30 tablet 06/21/19 Unknown Rx Oxycodone HCl/Acetaminophen 1 each PO Q6HR PRN #30 tablet 06/21/19 Unknown Rx [Percocet 7.5/325 mg] HYDROcodone/APAP 5-325 [[place] 1 each PO Q6HR PRN #12 tablet 07/07/19 Unknown Rx 5-325 mg TAB] ED Physical Exam - General Limitations: No Limitations General appearance: alert, in no apparent distress - Head Head exam: Present: atraumatic, normocephalic - Eye Eye exam: Present: normal appearance, PERRL, EOMI Pupils: Present: normal accommodation - ENT ENT exam: Present: mucous membranes moist - Neck Neck exam: Present: normal inspection, full ROM. Absent: tenderness, lymphadenopathy - Respiratory Respiratory exam: Present: normal lung sounds bilaterally. Absent: respiratory distress, wheezes, stridor, chest wall tenderness - Cardiovascular Cardiovascular Exam: Present: regular rate, normal rhythm, normal heart sounds. Absent: systolic murmur, diastolic murmur, rubs, gallop - GI/Abdominal GI/Abdominal exam: Present: soft, tenderness (periumbilical tenderness ), guarding, normal bowel sounds, hernia (non reduciable ). Absent: rebound, rigid, bruit - Rectal Rectal exam: Present: deferred - Extremities Exam Extremities exam: Present: normal inspection, full ROM, normal capillary refill. Absent: tenderness, pedal edema, joint swelling, calf tenderness - Back Exam Back exam: Present: normal inspection, full ROM. Absent: tenderness, CVA tenderness (R), CVA tenderness (L), muscle spasm, paraspinal tenderness, rash noted - Neurological Exam Neurological exam: Present: alert, oriented X3, CN II-XII intact, normal gait - Psychiatric Psychiatric exam: Present: normal affect, normal mood - Skin Skin exam: Present: warm, dry, intact, normal color. Absent: rash ED Course Vital Signs 07/07/19 07/07/19 17:25 20:27 Temperature 98.5 F Pulse Rate 87 Respiratory 16 18 Rate Blood Pressure 172/95 O2 Sat by Pulse 98 Oximetry ED Medical Decision Making - Lab Data Result diagrams: 07/07/19 18:05 07/07/19 18:05 - Radiology Data Radiology results: report reviewed, image reviewed Findings [facility] [address] [place] [address] Cat Scan Report Signed Patient: ANGIE CONNOR MR# : [id number] : 1970 Acct:[id number] Age/Sex: 48 / F ADM Date: 07/07/19 Loc: ED Attending Dr: Ordering Physician: SHAHZAD ESPINAL NP Date of Service: 07/07/19 Procedure(s): CT abdomen pelvis w con Accession Number(s): [id number] cc: SHAHZAD ESPINAL NP CT abdomen pelvis w con INDICATION / CLINICAL INFORMATION: abd pain swelling. Pain and swelling are present at the incision site following hysterectomy. TECHNIQUE: Axial CT imaging of abdomen and pelvis was obtained with contrast. Coronal and sagittal reformatted imaging obtained and reviewed. All CT scans at this location are performed using CT dose reduction for ALARA by means of automated exposure control. COMPARISON: None available. FINDINGS: CT abdomen with contrast demonstrates grossly normal appearance of the liver, spleen, pancreas, kidneys, and adrenal glands. Gallbladder is unremarkable. No biliary dilatation. There is a moderate amount of air within subcutaneous fat of the right upper abdomen. Additionally there is umbilical hernia. Fluid is present within the umbilical hernia. No bowel is present within the hernia. CT pelvis with contrast does not demonstrate any mass, free fluid, or focal inflammatory change. 2 cm left ovarian cyst is present. Normal appendix is visualized. Lung bases are clear. No significant osseous abnormality. IMPRESSION: 1. . An umbilical hernia is present containing only fat. There is a fluid collection within the hernia, however, which appears to be the source of the patient's pain and swelling. 2. Moderate amount of air is present in the subcutaneous fat of the right upper abdomen, postoperative in etiology.. This is also another source for the patient's complaint of pain and bloating. 3. No other significant finding Signer Name: Angelia Torres MD Signed: 07/07/2019 10:02 PM Workstation Name: [id number] Transcribed By: Dictated By: Angelia Torres MD Electronically Authenticated By: Angelia Torres MD Signed Date/Time: 07/07/192201 DD/ 54 TD/TT: - Medical Decision Making Patient offered admission and declined , CT abdomen and pelvis fat-containing hernia with fluid somewhere patient is tolerating by mouth intake without nausea vomiting there is no fever labs are negative comes into the original surgery Dr. Apodaca this patient as scheduled on Wednesday with provide referral to general surgery as well patient given strict instructions to return if symptoms worsen on and tolerated by mouth when developed fevers or rigors . Verbalizes understanding of same patient is currently alert oriented 3 demonstrates sound decision-making capacity will be DC'd to home in stable condition with prescription for hydrocodone 12 tablets only patient verbalizes see PCP and general surgery on scan scheduled Critical care attestation.: If time is entered above; I have spent that time in minutes in the direct care of this critically ill patient, excluding procedure time. ED Disposition Clinical Impression: Umbilical hernia without obstruction or gangrene Disposition: DC-01 TO HOME OR SELFCARE Is pt being admited?: No Does the pt Need Aspirin: No Condition: Stable Instructions: Umbilical Hernia (ED) Prescriptions: HYDROcodone/APAP 5-325 [[place] 5-325 mg TAB] 1 each PO Q6HR PRN #12 tablet PRN Reason: Pain Referrals: DARRELL GASPAR MD [Primary Care Provider] - 3-5 Days YOVANI APODACA MD [Staff Physician] - 2-3 Days LOREN SANDHU DO [Staff Physician] - 2-3 Days Forms: Work/School Release Form(ED) Time of Disposition: 22:44
[2019-07-07 21:47] LABS: Total Cells Counted 100
[2019-07-07 21:52] LABS: Hypochromasia 1+
[2019-07-07 21:53] LABS: Giant Platelets Few; Platelet Estimate Consistent w Auto; Target Cells Few
--- NOTE | 2019-07-07 22:07 | Cat Scan Report ---
CT abdomen pelvis w con INDICATION / CLINICAL INFORMATION: abd pain swelling. Pain and swelling are present at the incision site following hysterectomy. TECHNIQUE: Axial CT imaging of abdomen and pelvis was obtained with contrast. Coronal and sagittal reformatted i maging obtained and reviewed. All CT scans at this location are performed using CT dose reduction fo r ALARA by means of automated exposure control. COMPARISON: None available. FINDINGS: CT abdomen with contrast demonstrates grossly normal appearance of the liver, spleen, pancreas, kidne ys, and adrenal glands. Gallbladder is unremarkable. No biliary dilatation. There is a moderate amount of air within subcutaneous fat of the right upper abdomen. Additionally th ere is umbilical hernia. Fluid is present within the umbilical hernia. No bowel is present within the hernia. CT pelvis with contrast does not demonstrate any mass, free fluid, or focal inflammatory change. 2 cm left ovarian cyst is present. Normal appendix is visualized. Lung bases are clear. No significant osseous abnormality. IMPRESSION: 1. . An umbilical hernia is present containing only fat. There is a fluid collection within the herni a, however, which appears to be the source of the patient's pain and swelling. 2. Moderate amount of air is present in the subcutaneous fat of the right upper abdomen, postoperativ e in etiology.. This is also another source for the patient's complaint of pain and bloating. 3. No other significant finding Signer Name: Angelia Torres MD Signed: 07/07/2019 10:02 PM Workstation Name: [id number]
[2019-07-07] MEDS ORDERED: HYDROcodone/ACETAMINOPHEN 5-325 MG TAB PO ONE (22:44)
[2019-07-08 06:20] VITALS: BP 164/86
== END 2019-07-07 23:05 | disposition home or self-care (01) ==
LOC: ED 17:08
DX: K42.9 Umbilical hernia without obstruction or gangrene (principal); I25.2 Old myocardial infarction; K21.9 Gastro-esophageal reflux disease without esophagitis; F17.200 Nicotine dependence, unspecified, uncomplicated
CPT/HCPCS: 36415; 74177; 80053; 82140; 85007; 85025; 96374; 96375; 99284; J2270; J2405; J7030; Q9967

== ENCOUNTER 2019-07-10 11:09 | Outpatient (CLI) | payer OTHER | END 2019-07-10 11:10 | disposition home or self-care (01) | LOC: CT 11:09 | PROVIDERS: ATTEND Surgery Vascular Surgery | DX: R22.41 Localized swelling, mass and lump, right lower limb (principal); Z90.710 Acquired absence of both cervix and uterus; I25.10 Atherosclerotic heart disease of native coronary artery without angina pectoris; J43.9 Emphysema, unspecified; K21.9 Gastro-esophageal reflux disease without esophagitis; F17.200 Nicotine dependence, unspecified, uncomplicated ==

== ENCOUNTER 2019-07-17 11:35 | Outpatient (CLI) | payer OTHER ==
--- NOTE | 2019-07-17 15:20 | Cat Scan Report ---
CTA RIGHT LOWER EXTREMITY HISTORY: Localized swelling, mass and lump, right lower limb COMPARISON: None. TECHNIQUE: Routine postcontrast CT angiography of the right lower extremity performed. Multiplanar/KS P/3D reformats were post-processed. All CT scans at this location are performed using CT dose reducti on for ALARA by means of automated exposure control. CONTRAST: 100 ml of Omnipaque 350 FINDINGS: Common Femoral Artery: No significant abnormality. Superficial Femoral Artery: No significant abnormality. Profunda Femoral Artery: No significant abnormality. Popliteal Artery: No significant abnormality. Anterior Tibial Artery: The anterior tibial artery is last seen at the level of the ankle joint. Tibioperoneal Trunk: No significant abnormality. Posterior Tibial Artery: No significant abnormality. Peroneal Artery: No significant abnormality. Additional findings: Subcutaneous gas along the anterior pelvic wall is decreased by 50-75% since 07/07/2019. A small umbilical hernia containing fat is identified which is unchanged. IMPRESSION: The anterior tibial artery is last visualized at the level of the ankle which could represent distal occlusion. Otherwise, the arterial structures leading to the right lower extremity are widely patent with no significant stenosis. Signer Name: Yovani Kilgore Jr, MD Signed: 07/17/2019 3:15 PM Workstation Name: [id number]
== END 2019-07-17 11:36 | disposition home or self-care (01) ==
LOC: CT 11:35
PROVIDERS: ATTEND Surgery Vascular Surgery
DX: R22.41 Localized swelling, mass and lump, right lower limb (principal)
CPT/HCPCS: 36415; 73706; 82565; 84520; Q9967

== ENCOUNTER 2019-07-27 05:39 | Day surgery (SDC) | payer OTHER ==
[~2019-07-27 05:39] MED LIST changes: -NEURONTIN PO NR; -VERSED IV NR
[2019-07-27] MEDS ORDERED: MIDAZOLAM 2 MG/2 ML INJ IV NR (06:00)
[2019-07-27] MEDS ORDERED: GABAPENTIN 300 MG CAP PO NR (06:00)
[2019-07-27] MEDS ORDERED: fentaNYL 100 MCG/2 ML INJ IV PRN (06:00)
[2019-07-27] MEDS ORDERED: CELECOXIB 200 MG CAP PO NR (06:00)
[2019-07-27] MEDS ORDERED: BACTERIOSTATIC SODIUM CHLORIDE 0.9% 30 ML VIAL INFILTRATI ONE (06:34)
[2019-07-27] MEDS ORDERED: ceFAZolin/Water 2 GM/20 ML 2 GM/20 ML SYRINGE IV SCH (07:00)
[2019-07-27] MEDS ORDERED: ONDANSETRON 4 MG/2 ML INJ ONE (07:13)
[2019-07-27] MEDS ORDERED: dexAMETHasone 20 MG/5 ML VIAL ONE (07:13)
[2019-07-27] MEDS ORDERED: ROCURONIUM 50 MG/5 ML INJ IV ONE ×2 (07:13→08:32)
[2019-07-27] MEDS ORDERED: fentaNYL 250 MCG/5 ML INJ ONE (07:13)
[2019-07-27] MEDS ORDERED: PROPOFOL 200 MG/20 ML VIAL IV ONE (07:13)
[2019-07-27] MEDS ORDERED: LIDOCAINE MPF (2%) 20 MG/1 ML VIAL 5 ML ONE (07:13)
[2019-07-27] MEDS ORDERED: BUPIVACAINE-EPINEPHRINE/PF 0.25%-1:200,000 (30 ML) VIAL INFILTRATI ONE (07:14)
[2019-07-27] MEDS ORDERED: dexAMETHasone 4 MG/ML VIAL ONE (07:14)
[2019-07-27] MEDS ORDERED: BUPIVACAINE-EPINEPHRINE/PF 0.25%-1:200,000 (10 ML) VIAL INFILTRATI ONE (07:15)
[2019-07-27] MEDS ORDERED: GLYCOPYRROLATE 0.4 MG/2 ML INJ ONE (07:30)
--- NOTE | 2019-07-27 07:36 | Anesthesia Consultation ---
Anesthesia Consult and Med Hx Date of service: 07/27/19 - Airway Anesthetic Teeth Evaluation: Edentulous ROM Head & Neck: Adequate Mental/Hyoid Distance: Adequate Mallampati Class: Class II Intubation Access Assessment: Probably Good - Pulmonary Exam CTA: Yes - Cardiac Exam Cardiac Exam: RRR - Pre-Operative Health Status ASA Pre-Surgery Classification: ASA3 Proposed Anesthetic Plan: General Nerve Block: TAP - Pulmonary Hx Smoking: Yes (down to 1 pack per week) Hx Respiratory Symptoms: No - Cardiovascular System Hx Hypertension: No Hx Coronary Artery Disease: No (normal [facility] 03/2019) Hx Heart Attack/AMI: Yes (Age 26) Hx Percutaneous Transluminal Coronary Angioplasty (PTCA): No Hx Cardia Arrhythmia: No Hx Heart Murmur: Yes - Central Nervous System CVA: No Hx Back Pain: Yes (LOWER ) Hx Psychiatric Problems: No - Gastrointestinal Hx Ulcer: Yes - Endocrine Hx Renal Disease: No Hx Liver Disease: No Hx Insulin Dependent Diabetes: No Hx Non-Insulin Dependent Diabetes: No Hx Thyroid Disease: No - Other Systems Hx Obesity: Yes - Additional Comments Anesthesia Medical History Comments: No hx anesthetic complications. TAP block per surgeon request.
--- NOTE | 2019-07-27 07:36 | Anesthesia Day of Surgery ---
Anesthesia Day of Surgery - Day of Surgery Patient Examined: Yes Patient H&P Reviewed: Yes Patient is NPO: Yes
[2019-07-27] MEDS ORDERED: HYDROmorphone 1 MG/1 ML INJ IV PRN (07:37)
[2019-07-27] MEDS ORDERED: SUGAMMADEX SODIUM 200 MG/2 ML VIAL IV ONE (07:42)
[2019-07-27] MEDS ORDERED: SUCCINYLCHOLINE CHLORIDE 200 MG/10 ML INJ MDV ONE (08:10)
[2019-07-27] MEDS ORDERED: PHENYLEPHRINE/NS 1,000 MCG/10 ML SYRINGE (OR USE) IV ONE ×2 (09:02)
[2019-07-27] MEDS ORDERED: LACTATED RINGERS 1,000 ML ONE (09:36)
[2019-07-27] MEDS ORDERED: SODIUM CHLORIDE 0.9% IRR 1,500 ML BOTTLE IR ONE (09:45)
--- NOTE | 2019-07-27 10:03 | Short Stay Summary ---
Short Stay Documentation Date of service: 07/27/19 - History Principal diagnosis: incisional hernia - Allergies and Medications Current Medications: Allergies No Known Allergies Allergy (Verified 07/24/19 17:14) Home Medications Medication Instructions Recorded Confirmed Last Taken Type Omeprazole 40 mg PO BID 05/30/19 07/24/19 07/26/19 History Ferrous Sulfate [Feosol] 325 mg PO QDAY 07/24/19 07/24/19 07/26/19 History Active Medications Celecoxib (Celebrex) 200 mg PO PREOP NR Stop: 07/27/19 23:01 Last Admin: 07/27/19 06:50 Dose: 200 mg Documented by: Fentanyl (Sublimaze) 100 mcg IV ONCE PRN PRN Reason: sedation for nerve block Stop: 07/27/19 16:00 Last Admin: 07/27/19 07:21 Dose: 100 mcg Documented by: Gabapentin (Gabapentin) 300 mg PO PREOP NR Stop: 07/27/19 23:01 Last Admin: 07/27/19 06:50 Dose: 300 mg Documented by: Hydromorphone HCl (Dilaudid) 0.5 mg IV Q10MIN PRN PRN Reason: Pain , Severe (7-10) Stop: 07/27/19 22:00 Lactated Ringer's (Lactated Ringers) 1,000 mls @ 100 mls/hr IV DIRECT COBY Last Admin: 07/27/19 06:45 Dose: 100 mls/hr Documented by: Cefazolin Sodium (Ancef/Sterile Water 2 Gm/20 Ml) 2 gm in 20 mls @ 40 mls/hr IV PREOP COBY; Protocol Stop: 07/27/19 23:00 Midazolam HCl (Versed) 2 mg IV PREOP NR Stop: 07/27/19 22:00 Last Admin: 07/27/19 07:21 Dose: 2 mg Documented by: - Brief post op/procedure progress note Date of procedure: 07/27/19 Pre-op diagnosis: incarcerated incisional hernia Post-op diagnosis: other (incarcerated incisional and umbilical hernia) Procedure: Robotic assisted lysis of adhesions, incisional and umbilical hernia repair with mesh Anesthesia: GETA, other Findings: 1. 1.5 cm hernia defect at site of incisional hernia with a large amount of incarcerated omentum 2. 2 cm umbilical hernia with incarcerated omentum 3. Adhesions from omentum to anterior abdominal wall 4. Total hernia measurement 6.5cm x 2cm repaired with [id number] bard ventralite composite mesh Surgeon: LOREN SANDHU Varnish Supervisor: CHINO BRODERICK Estimated blood loss: minimal Pathology: none Condition: stable - Hospital course Hospital course: Pt observed in PACU and discharged to home in stable condition when criteria met - Disposition Condition at discharge: Good Disposition: DC-01 TO HOME OR SELFCARE Short Stay Discharge Plan Activity: other (no heavy lifting more than 15 lbs until seen by surgeon) Diet: regular Wound: open to air, other (may remove outer dressing (gauze and clear tape) in 2 days. Ok to shower tomorrow.) Additional Instructions: SEE PRINTED DISCHARGE INSTRUCTIONS Follow up with: LILI THEODORE MD [Primary Care Provider] - 7 Days LOREN SANDHU DO [Staff Physician] - 14 Days Prescriptions: oxyCODONE /ACETAMINOPHEN [Percocet 5/325] 1 tab PO Q4HR PRN #30 tab PRN Reason: Pain , Severe (7-10) Ondansetron [Zofran Odt] 4 mg PO Q8HR PRN #30 tab.rapdis PRN Reason: Nausea
[2019-07-27] MEDS ORDERED: oxyCODONE /ACETAMINOPHEN 5-325MG TAB PO PRN (11:20)
[2019-07-27 13:08] VITALS: BP 137/98
--- NOTE | 2019-07-27 13:40 | Post Anesthesia Evaluation ---
- Post Anesthesia Evaluation Patient Participated: Yes Airway Patent: Yes Stable Respiratory Function: Yes Nausea/Vomiting: No Temp > 96.8F: Yes Pain Manageable: Yes Adequeate Hydration: Yes Anesthesia Complications: No
--- NOTE | 2019-07-31 09:59 | Operative Report ---
Operative Report Operative Report: Date of procedure: 07/27/19 Pre-op diagnosis: incarcerated incisional hernia Post-op diagnosis: other (incarcerated incisional and umbilical hernia) Procedure: Robotic assisted lysis of adhesions, incisional and umbilical hernia repair with mesh Anesthesia: AMBIKA, other Findings: 1. 1.5 cm hernia defect at site of incisional hernia with a large amount of incarcerated omentum 2. 2 cm umbilical hernia with incarcerated omentum 3. Adhesions from omentum to anterior abdominal wall 4. Total hernia measurement 6.5cm x 2cm repaired with [id number] bard ventralite composite mesh Surgeon: LOREN SANDHU C D Stripper: CHINO BRODERICK Estimated blood loss: minimal Pathology: none Condition: stable - Hospital course Hospital course: Pt observed in PACU and discharged to home in stable condition when criteria met HPI an indication: Patient is a 48-year-old female who underwent robotic- assisted hysterectomy 1 month prior. She developed pain at her 12 mm incision site and outpatient workup with a CT scan showed a hernia at that site with incarcerated fat. The hernia was not reducible and tender on palpation. Therefore was recommended that the hernia be repaired. All risks, benefits, alternatives to surgery were discussed with the patient and questions answered. Consent was obtained. Procedure in detail: The patient was identified in the preoperative area, taken back to the operating room and placed on the operating room table in supine position. After anesthesia was induced the right arm was tucked and all bony prominences padded appropriately. The abdomen was prepped and draped in the usual sterile fashion and a timeout performed. The patient received a tap block by anesthesia and therefore no local anesthetic was used in the case. A makenna incision was made in the left upper quadrant a palmar splint through which a Veress needle was inserted. The Veress needle positioning was confirmed using the saline drop test and the abdomen insufflated to 15 mmHg. A 5 mm Optiview trocar was then placed through an incision in the right upper quadrant. The abdomen was inspected and there was no underlying injury to any of the intra- abdominal structures. The Veress needle was visualized and removed. An additional 12 mm balloon trocar was placed in the right lateral abdomen and a 8 mm robotic trocar in the right lower quadrant under direct visualization . The 5 mm trocar in the right upper quadrant was replaced with an 8 mm robotic trocar under direct visualization. Omentum was seen adhesed to the anterior abdominal wall at the site of the hernia. There were also it omental adhesions along the midline to the umbilicus. The robot was docked. A monopolar scissor was placed on #1 and a fenestrated bipolar in arm #2. The surgeon was transferred to the console. A meticulous dissection was then undertaken in order to take down the omental adhesions to the anterior abdominal wall and reduce the omentum incarcerated in the hernia. This was done using a combination of blunt dissection along with monopolar scissor dissection. Once all of the omentum was reduced and adhesions taken down, the omentum was inspected and hemostasis which was carefully ensured. The hernia at the previous trocar site measured approximately 1.5 cm. There was a hernia at the umbilicus measuring 2 cm. The total hernia measurement was 6.5 cm x 2 cm. I attempted preperitoneal dissection by scoring the peritoneum approximately 5-6 cm from the hernia, however there was too much scar tissue and the peritoneum was too thin to develop this plane. Therefore was decided to perform a Intraperitoneal placement of mesh. A 10 x 15 cm Bard ventral light composite mesh along with suture material was inserted into the abdomen. Intra- abdominal pressures were turned down to 8 mmHg. The fascia at the incisional hernia site was closed using 0V LOC running suture. The mesh was positioned at the center of the area and sutured circumferentially using 2-0V LOC running suture. The mesh was seen to lay flat. The robot was then undocked. The remainder of the case was performed laparoscopically and the surgeon was scrubbed back in. The needles and suture material were removed from the abdomen. The 12 mm port was removed and the fascia closed with an interrupted 0 Vicryl suture using the Lukas Sandoval device. The 2 remaining ports are removed under direct visualization and the abdomen desufflated. The skin incisions were closed with 4-0 Monocryl subcutaneous stitches and skin glue. At the end of the case all sponge, instrument, sharp counts were correct 2. The patient was awoken from anesthesia, extubated, taken to PACU in stable condition.
== END 2019-07-27 12:20 | disposition home or self-care (01) ==
LOC: OR 05:39
PROVIDERS: ATTEND Surgery
DX: K43.0 Incisional hernia with obstruction, without gangrene (principal); I10 Essential (primary) hypertension; I25.10 Atherosclerotic heart disease of native coronary artery without angina pectoris; K21.9 Gastro-esophageal reflux disease without esophagitis; E66.9 Obesity, unspecified; I25.2 Old myocardial infarction; Z90.710 Acquired absence of both cervix and uterus; Z79.899 Other long term (current) drug therapy; Z87.891 Personal history of nicotine dependence; Z98.891 History of uterine scar from previous surgery; Z98.890 Other specified postprocedural states; Z86.2 Personal history of diseases of the blood and blood-forming organs and certain disorders involving the immune mechanism; Z68.38 Body mass index [BMI] 38.0-38.9, adult
CPT/HCPCS: 49655; 64488; C1781; J0330; J0690; J1100; J2250; J2370; J2405; J2704; J3010; J7120; S2900; 64450

== ENCOUNTER 2019-08-14 09:47 | Outpatient (CLI) | payer OTHER ==
[2019-08-14] MEDS ORDERED: LIDOCAINE (4%) 40 MG/ML TOPICAL SOLN 50 ML BOTTLE TP ONE (11:18)
== END 2019-08-14 09:48 | disposition home or self-care (01) ==
LOC: WOUND 09:47
PROVIDERS: ATTEND Surgery
DX: T81.89XA Other complications of procedures, not elsewhere classified, initial encounter (principal); S31.103A Unspecified open wound of abdominal wall, right lower quadrant without penetration into peritoneal cavity, initial encounter; K21.9 Gastro-esophageal reflux disease without esophagitis; Z87.891 Personal history of nicotine dependence; Y83.8 Other surgical procedures as the cause of abnormal reaction of the patient, or of later complication, without mention of misadventure at the time of the procedure; Y92.89 Other specified places as the place of occurrence of the external cause; X58.XXXA Exposure to other specified factors, initial encounter; Y93.89 Activity, other specified; Y99.8 Other external cause status
CPT/HCPCS: 97605; G0463; 99204; 99214

== ENCOUNTER 2019-08-21 10:15 | Outpatient (CLI) | payer OTHER ==
[2019-08-21] MEDS ORDERED: LIDOCAINE (4%) 40 MG/ML TOPICAL SOLN 50 ML BOTTLE TP ONE (11:11)
== END 2019-08-21 10:16 | disposition home or self-care (01) ==
LOC: WOUND 10:15
PROVIDERS: ATTEND Surgery
DX: T81.89XD Other complications of procedures, not elsewhere classified, subsequent encounter (principal); K21.9 Gastro-esophageal reflux disease without esophagitis; I25.2 Old myocardial infarction; Z87.891 Personal history of nicotine dependence; Y83.8 Other surgical procedures as the cause of abnormal reaction of the patient, or of later complication, without mention of misadventure at the time of the procedure
CPT/HCPCS: 99214; G0463

== ENCOUNTER 2019-09-04 09:12 | Outpatient (CLI) | payer OTHER | END 2019-09-04 09:13 | disposition home or self-care (01) | LOC: WOUND 09:12 | PROVIDERS: ATTEND Surgery | DX: T81.89XD Other complications of procedures, not elsewhere classified, subsequent encounter (principal); K21.9 Gastro-esophageal reflux disease without esophagitis; I25.2 Old myocardial infarction; Z87.891 Personal history of nicotine dependence; Y83.8 Other surgical procedures as the cause of abnormal reaction of the patient, or of later complication, without mention of misadventure at the time of the procedure | CPT/HCPCS: 99213; G0463 ==

== ENCOUNTER 2019-09-13 10:23 | Day surgery (SDC) | payer OTHER ==
[2019-09-13] MEDS ORDERED: LACTATED RINGERS 1,000 ML ONE ×2 (11:05→13:43)
--- NOTE | 2019-09-13 11:14 | Anesthesia Consultation ---
Anesthesia Consult and Med Hx Date of service: 09/13/19 - Airway Anesthetic Teeth Evaluation: Edentulous ROM Head & Neck: Adequate Mental/Hyoid Distance: Adequate Mallampati Class: Class II Intubation Access Assessment: Good - Pulmonary Exam CTA: Yes - Cardiac Exam Cardiac Exam: RRR - Pre-Operative Health Status ASA Pre-Surgery Classification: ASA2 (Ex Smoker quit 2 months ago , GERD, Obesity normal cardiac cath March 2019 for GA) Proposed Anesthetic Plan: General - Pulmonary Hx Smoking: Yes (SINCE AGE 24; QUIT 07/2019) Hx Respiratory Symptoms: No Hx Pneumonia: No - Cardiovascular System Hx Hypertension: No Hx Coronary Artery Disease: No (normal [facility] 03/2019) Hx Heart Attack/AMI: Yes (Age 26) Hx Percutaneous Transluminal Coronary Angioplasty (PTCA): No Hx Cardia Arrhythmia: No Hx Heart Murmur: Yes - Central Nervous System CVA: No Hx Back Pain: Yes (LOWER ) Hx Psychiatric Problems: No - Gastrointestinal Hx Ulcer: Yes (+NGT now) - Endocrine Hx Renal Disease: No Hx Liver Disease: No Hx Insulin Dependent Diabetes: No Hx Non-Insulin Dependent Diabetes: No Hx Thyroid Disease: No - Hematic Hx Anemia: Yes (SEC TO FIBROIDS, RESOLVED WITH HYSTERECTOMY) - Other Systems Hx Alcohol Use: No Hx Cancer: No Hx Obesity: Yes
--- NOTE | 2019-09-13 11:14 | Anesthesia Day of Surgery ---
Anesthesia Day of Surgery - Day of Surgery Patient Examined: Yes Patient H&P Reviewed: Yes Patient is NPO: Yes
[2019-09-13] MEDS ORDERED: ONDANSETRON 4 MG/2 ML INJ IV PRN (11:15)
[2019-09-13] MEDS ORDERED: HYDROmorphone 1 MG/1 ML INJ IV PRN (11:15)
[2019-09-13] MEDS ORDERED: LIDOCAINE (1%) 10 MG/1 ML VIAL 20 ML MDV ONE (11:42)
[2019-09-13] MEDS ORDERED: BUPIVACAINE-EPINEPHRINE/PF 0.25%-1:200,000 (30 ML) VIAL INFILTRATI ONE (11:42)
[2019-09-13] MEDS ORDERED: GABAPENTIN 300 MG CAP PO NR (12:00)
[2019-09-13] MEDS ORDERED: LACTATED RINGERS 1,000 ML IV SCH (12:00)
[2019-09-13] MEDS ORDERED: CELECOXIB 200 MG CAP PO NR (12:00)
[2019-09-13] MEDS ORDERED: ceFAZolin/STERILE WATER 2 GM/20 ML SYRINGE IV NR (12:00)
[2019-09-13] MEDS ORDERED: MIDAZOLAM 2 MG/2 ML INJ IV NR (12:00)
[2019-09-13] MEDS ORDERED: PROPOFOL 200 MG/20 ML VIAL IV ONE (12:14)
[2019-09-13] MEDS ORDERED: HYDROmorphone 1 MG/1 ML INJ ONE (12:14)
[2019-09-13] MEDS ORDERED: LIDOCAINE MPF (2%) 20 MG/1 ML VIAL 5 ML ONE (12:14)
[2019-09-13] MEDS ORDERED: BUPIVACAINE/PF (0.5%) 5 MG/1 ML 30 ML VIAL INFILTRATI ONE ×2 (12:15→13:21)
[2019-09-13] MEDS ORDERED: LIDOCAINE (1%) 10 MG/1 ML VIAL 20 ML MDV INFILTRATI ONE (13:21)
[2019-09-13] MEDS ORDERED: SODIUM CHLORIDE 0.9% IRR 1,500 ML BOTTLE IR ONE (13:22)
[2019-09-13] MEDS ORDERED: ONDANSETRON 4 MG/2 ML INJ ONE (13:43)
--- NOTE | 2019-09-13 14:02 | Short Stay Summary ---
Short Stay Documentation Date of service: 09/13/19 - History Principal diagnosis: soft tissue deborah right arm and b/l LE H&P: obtained from office - Allergies and Medications Current Medications: Allergies No Known Allergies Allergy (Verified 09/11/19 15:33) Home Medications Medication Instructions Recorded Confirmed Last Taken Type No Known Home Medications [No 09/11/19 09/13/19 Unknown History Reported Home Medications] Active Medications Celecoxib (Celebrex) 200 mg PO PREOP NR Stop: 09/13/19 16:00 Last Admin: 09/13/19 11:35 Dose: 200 mg Documented by: Gabapentin (Gabapentin) 300 mg PO PREOP NR Stop: 09/13/19 23:59 Last Admin: 09/13/19 11:35 Dose: 300 mg Documented by: Hydromorphone HCl (Dilaudid) 0.5 mg IV Q10MIN PRN PRN Reason: Pain , Severe (7-10) Stop: 09/13/19 23:59 Lactated Ringer's (Lactated Ringers) 1,000 mls @ 100 mls/hr IV DIRECT COBY Last Admin: 09/13/19 11:07 Dose: 100 mls/hr Documented by: Midazolam HCl (Versed) 2 mg IV PREOP NR Stop: 09/13/19 23:59 Last Admin: 09/13/19 12:10 Dose: 2 mg Documented by: Ondansetron HCl (Zofran) 4 mg IV ONCE PRN PRN Reason: Nausea And Vomiting Stop: 09/13/19 16:00 - Brief post op/procedure progress note Date of procedure: 09/13/19 Pre-op diagnosis: Right forearm soft tissue mass, Multiple b/l LE calcified masses Post-op diagnosis: same Procedure: Excision of soft tissue mass R forearm Excision of b/l LE calcified masses Anesthesia: local Findings: 1. 3cm soft tissue mass (lipoma) of right forearm 2. Multiple subcentimeter subcutaneous calcified lesions of b/l LE Surgeon: LOREN SANDHU Estimated blood loss: minimal Pathology: list (1. soft tissue mass right forearm, 2. calcified subcutaneous lesions of right leg, 3. calcified subcuanteous lesions of left leg) Specimen disposition: to lab Condition: stable - Hospital course Hospital course: Pt observed in PACU and discharged to home in stable condition when criteria met - Disposition Condition at discharge: Good Disposition: DC- TO HOME OR SELFCARE Short Stay Discharge Plan Activity: no restrictions Diet: regular Wound: other (remove outer dressings in 2 days. may shower tomorrow with dressings on) Follow up with: LUPILLO GAXIOLA MD [Primary Care Provider] - 7 Days LOREN SANDHU DO [Staff Physician] - 7 Days Prescriptions: Oxycodone HCl/Acetaminophen [Percocet 7.5/325 mg] 1 each PO Q6HR PRN #10 tablet PRN Reason: Pain
[2019-09-13] MEDS ORDERED: hydrALAZINE 20 MG/1 ML INJ ONE (14:04)
[2019-09-13] MEDS ORDERED: hydrALAZINE 20 MG/1 ML INJ IV ONE ×2 (14:06→14:28)
--- NOTE | 2019-09-13 14:13 | Post Anesthesia Evaluation ---
- Post Anesthesia Evaluation Patient Participated: Yes Airway Patent: Yes Stable Respiratory Function: Yes Nausea/Vomiting: No Temp > 96.8F: Yes Pain Manageable: Yes Adequeate Hydration: Yes Anesthesia Complications: No Block Receding Appropriately: Not Applicable Patient on Ventilator: No
[2019-09-13] MEDS ORDERED: MEPERIDINE 25 MG/1 ML INJ IV PRN (14:46)
[2019-09-13] MEDS ORDERED: MEPERIDINE 25 MG/1 ML INJ ONE (14:47)
[2019-09-13 15:51] VITALS: BP 148/92
--- NOTE | 2019-09-14 12:19 | Operative Report ---
PREOPERATIVE DIAGNOSES: Right forearm soft tissue mass and multiple bilateral lower extremity calcified masses. POSTOPERATIVE DIAGNOSES: Right forearm soft tissue mass and multiple bilateral lower extremity calcified masses. PROCEDURES: 1. Excision of soft tissue mass, right forearm. 2. Excision of bilateral lower extremity calcified masses. ANESTHESIA: LMA and local. FINDINGS: 1. A 3-cm soft tissue mass consistent with lipoma of right forearm. 2. Multiple 0.6-1 cm subcutaneous calcified lesions of bilateral lower extremities. SURGEON: Laura Morrell DO ESTIMATED BLOOD LOSS: Minimal. PATHOLOGY: 1. Soft tissue mass, right forearm. 2. Calcified subcutaneous lesion of right leg measuring between 0.6 cm-1 cm. 3. Calcified subcutaneous lesion of left leg measuring 0.6 cm-1 cm. SPECIMEN DISPOSITION: To lab. CONDITION ON DISCHARGE: The patient is stable to PACU. HISTORY OF PRESENT ILLNESS AND INDICATION: The patient is a 48-year-old female who presented to the surgery clinic with complaints of a mass of her right forearm and hard lesions of bilateral lower extremities. The patient states that she has had a soft tissue mass of her left lower extremity in the past, which was excised. She has been complaining of these lesions for many years and states that they have become more uncomfortable. The soft tissue mass of the right forearm has gotten bigger and moved in position. She would like for excision. All risks, benefits and alternatives to surgery discussed with the patient. Questions answered. Consent was obtained. PROCEDURE IN DETAIL: The patient was identified in the preoperative area, taken back to the operating room and placed on the operating table in supine position. After anesthesia was induced, the right forearm and bilateral anterior lower legs were prepped and draped in the usual sterile fashion. Timeout was performed. We first started by addressing the soft tissue mass of the right forearm. Local anesthetic was infiltrated into skin and subcutaneous tissue at the intended incision site. A 3-cm incision was made along the length of the limb over the area of palpable soft tissue mass with a 15 blade. Dissection was carried down through skin and subcutaneous tissue using Bovie electrocautery until the mass was encountered. The mass was fatty in nature and was from the surrounding tissue, very meticulously using a hemostat. Once the entire mass was freed circumferentially, it was removed from the wound bed and passed off table as specimen. This measured 3 cm. The wound was irrigated and hemostasis carefully ensured. No major blood vessels or nerves were encountered. Once hemostasis was ensured, the wound was closed using 4-0 Monocryl subcuticular running stitch and skin glue. We then turned our attention to excising the left lower extremity calcified lesions. An incision was made over the lesion using a 15 blade along the length of the limb. Dissection was carried down through skin and subcutaneous tissue using electrocautery until the mass was encountered. The mass was circumferentially dissected free from the surrounding tissue using combination of blunt dissection with a hemostat and electrocautery. Once this was completely freed, it was passed off table as specimen. There was an additional smaller mass that was identified, which was also dissected free from the surrounding tissue and excised. The wound was then irrigated and hemostasis carefully ensured. Both masses are very superficial. The incision was then closed with interrupted 4-0 Monocryl subcuticular stitches and skin glue. The area of the incision was infiltrated with local anesthetic. I then turned my attention to the right lower leg. There were three areas that were separate with these lesions. Thus, the lesions were extracted in similar fashion as the left side. A total of 3 incisions were made. Approximately 5 calcified lesions were removed in total from the right side. All measuring between 0.6 cm to 1 cm. All wounds were irrigated with saline and the skin infiltrated with local anesthetic. Once hemostasis was achieved, the skin incisions were closed with 4-0 Monocryl subcuticular stitch and skin glue. At the end of the case, all sponge, instrument, sharp counts were correct x 2. Once the glue was dry, Telfa was applied to each incision and covered with a Tegaderm. The patient was awoken from anesthesia, extubated and taken to PACU in stable condition. JOB# [id number] LAWSON/BRENDA
== END 2019-09-13 16:30 | disposition home or self-care (01) ==
LOC: OR 10:23
PROVIDERS: ATTEND Surgery
DX: R22.31 Localized swelling, mass and lump, right upper limb (principal); R22.43 Localized swelling, mass and lump, lower limb, bilateral; D17.21 Benign lipomatous neoplasm of skin and subcutaneous tissue of right arm; M79.89 Other specified soft tissue disorders; I10 Essential (primary) hypertension; I25.10 Atherosclerotic heart disease of native coronary artery without angina pectoris; K21.9 Gastro-esophageal reflux disease without esophagitis; E66.9 Obesity, unspecified; Z79.899 Other long term (current) drug therapy; Z87.891 Personal history of nicotine dependence; Z98.890 Other specified postprocedural states; Z68.38 Body mass index [BMI] 38.0-38.9, adult; Z90.710 Acquired absence of both cervix and uterus; Z81.1 Family history of alcohol abuse and dependence; Z98.891 History of uterine scar from previous surgery; Z86.2 Personal history of diseases of the blood and blood-forming organs and certain disorders involving the immune mechanism
CPT/HCPCS: 11401; 25071; 88304; 88311; J0360; J0690; J1170; J2175; J2250; J2405; J2704; J7120; 88307

== ENCOUNTER 2019-11-16 15:41 | Emergency (ER) | payer OTHER ==
--- NOTE | 2019-11-16 15:59 | Emergency Department Report ---
Blank Doc - Documentation Documentation: 48-year-old female that presents with CP, SOB, and abd pain with n/v. This initial assessment/diagnostic orders/clinical plan/treatment(s) is/are subject to change based on patient's health status, clinical progression and re- assessment by fellow clinical providers in the ED. Further treatment and workup at subsequent clinical providers discretion. Patient/guardians urged not to elope from the ED as their condition may be serious if not clinically assessed and managed. Initial orders include: 1- Patient sent to MAIN ED for further evaluation and treatment labs UA
--- NOTE | 2019-11-16 16:29 | XRay Report ---
CHEST 2 VIEWS INDICATION: Chest Pain. COMPARISON: 07/30/2019 FINDINGS: Support devices: None. Heart: Within normal limits. Pulmonary vasculature: Normal. Lungs/pleura: No acute air space or interstitial disease. No pneumothorax. Additional findings: None. IMPRESSION: 1. No acute findings. Signer Name: Jelani Orlando MD Signed: 11/16/2019 4:25 PM Workstation Name: [id number]
[2019-11-16 16:45] LABS: Hematocrit 41.4 % (30.3-42.9); Mean Corpuscular HGB Conc 32 % (30-34); Mean Corpuscular Volume 82 fl (79-97); Platelet Count 237 K/mm3 (140-440); Red Blood Count 5.08 M/mm3 (3.65-5.03)
[2019-11-16 16:55] LABS: INR 0.92 (0.87-1.13); Red Cell Distribution Width 22.3 % (13.2-15.2)
[2019-11-16 16:56] LABS: Partial Thromboplastin Time 38.3 Sec. (24.2-36.6)
[2019-11-16 17:10] LABS: Alanine Aminotransferase 11 units/L (7-56); Albumin 3.6 g/dL (3.9-5); BUN/Creatinine Ratio 10; Blood Urea Nitrogen 13 mg/dL (7-17); Calcium 9.3 mg/dL (8.4-10.2); Hemolysis Index 13
[2019-11-16 17:57] LABS: Anisocytosis 1+; Basophils % (Manual) 0 % (0.0-1.8); Giant Platelets 1+; Hypochromasia 1+; Total Cells Counted 100
[2019-11-16 19:32] LABS: Bilirubin,Urine NEG (Negative); Blood,Urine NEG (Negative); Color,Urine Yellow (Yellow); Mucus,Urine FEW /HPF; Protein,Urine <15 mg/dL mg/dL (Negative); Urobilinogen,Urine < 2.0 mg/dL (<2.0)
[2019-11-16] MEDS: SODIUM CHLORIDE 0.9% 1000 ML 1,000 ML IV ONE (20:00)
[2019-11-16] MEDS: HYDROmorphone 1 MG/1 ML INJ IV ONE (20:10)
[2019-11-16] MEDS: ONDANSETRON 4 MG/2 ML INJ IV ONE (20:11)
--- NOTE | 2019-11-16 21:06 | Emergency Department Report ---
ED Abdominal Pain HPI - General Chief Complaint: Chest Pain Stated Complaint: CHEST PAIN/SOB Time Seen by Provider: 11/16/19 15:59 Source: patient Mode of arrival: Wheelchair Limitations: No Limitations - History of Present Illness Initial Comments: 48-year female the past medical history of "VT at age 26," previous hysterectomy, hernia repair, bowel obstruction requiring partial small bowel resection presents to the hospital with complaints abdominal pain, constipation, and chest pain. Patient states she has not had a bowel movement in about 10 da ys despite using MiraLAX and mag citrate. 2 days ago patient began to have nausea and vomiting. Patient complains of mid chest pain since yesterday described as something sitting on her chest. This pain is intermittent worse with deep inspiration and vomiting episodes. Patient also complains of shortness of breath while at rest. No fever reported. Patient saw her GI doctor located [facility] yesterday who advised that she take a capful of MiraLAX with IV beverage. Patient also states that when she takes bowel prep for colonoscopy she has never completely cleaned out. - Related Data Previous Rx's Medication Instructions Recorded Last Taken Type Oxycodone HCl/Acetaminophen 1 each PO Q6HR PRN #10 tablet 09/13/19 Unknown Rx [Percocet 7.5/325 mg] Albuterol Sulfate [Proventil Hfa] 6.7 gm IH Q4HR PRN #1 hfa.aer.ad 11/16/19 Unk nown Rx Lactulose [Cephulac] 20 gm PO BID PRN #240 ml 11/16/19 Unknown Rx Ondansetron [Zofran Odt] 4 mg PO Q8HR PRN #20 tab.rapdis 11/16/19 Unknown Rx Allergies Allergy/AdvReac Type Severity Reaction Status Date / Time No Known Allergies Allergy Verified 09/11/19 15:33 ED Review of Systems ROS: Stated complaint: CHEST PAIN/SOB Other details as noted in HPI Comment: All other systems reviewed and negative ED Past Medical Hx - Past Medical History Hx Hypertension: No Hx Heart Attack/AMI: Yes (Age 26) Hx GERD: Yes Hx Liver Disease: No Hx Renal Disease: No Hx HIV: No Additional medical history: emphysema (as per ct chest) - Surgical History Additional Surgical History: LEFT LEG / SPURS / C SECTIONS X 2. Hysterectomy. Hernia repair - Social History Smoking Status: Never Smoker Substance Use Type: None - Medications Home Medications: Home Medications Medication Instructions Recorded Confirmed Last Taken Type Oxycodone HCl/Acetaminophen 1 each PO Q6HR PRN #10 tablet 09/13/19 Unknown Rx [Percocet 7.5/325 mg] Albuterol Sulfate [Proventil Hfa] 6.7 gm IH Q4HR PRN #1 hfa.aer.ad 11/16/19 Unknown Rx Lactulose [Cephulac] 20 gm PO BID PRN #240 ml 11/16/19 Unknown Rx Ondansetron [Zofran Odt] 4 mg PO Q8HR PRN #20 tab.rapdis 11/16/19 Unknown Rx ED Physical Exam - General Limitations: No Limitations - Other Other exam information: General: No acute distress Head: Atraumatic Eyes: normal appearance ENT: Moist mucous membranes Neck: Normal appearance, no midline tenderness Chest: Clear to auscultation bilaterally, anterior chest wall nontender CV: Regular rate and rhythm Abdomen: Soft, normal bowel sounds, postsurgical scars noted, right-sided abdominal tenderness without rebound or guarding. Back: Normal inspection Extremity: Normal inspection, full range of motion Neuro: Alert O x 3, no facial asymmetry, speech clear, no gross motor sensory deficit Psych: Appropriate behavior Skin: No rash ED Course Vital Signs 11/16/19 11/16/19 15:54 19:47 Temperature 98.2 F Pulse Rate 82 74 Respiratory 20 14 Rate Blood Pressure 176/94 O2 Sat by Pulse 99 96 Oximetry ED Medical Decision Making - Lab Data Result diagrams: 11/16/19 16:21 11/16/19 16:21 Lab Results 11/16/19 11/16/19 11/16/19 Range/Units 16:21 16:21 16:21 WBC 4.4 L (4.5-11.0) K/mm3 RBC 5.08 H (3.65-5.03) M/mm3 Hgb 13.0 (10.1-14.3) gm/dl Hct 41.4 (30.3-42.9) % MCV 82 (79-97) fl MCH 26 L (28-32) pg MCHC 32 (30-34) % RDW 22.3 H (13.2-15.2) % Plt Count 237 (140-440) K/mm3 Add Manual Diff Complete Total Counted 100 Seg Neuts % (Manual) 51.0 (40.0-70.0) % Band Neutrophils % 0 % Lymphocytes % (Manual) 42.0 H (13.4-35.0) % Reactive Lymphs % (Man) 0 % Monocytes % (Manual) 4.0 (0.0-7.3) % Eosinophils % (Manual) 3.0 (0.0-4.3) % Basophils % (Manual) 0 (0.0-1.8) % Metamyelocytes % 0 % Myelocytes % 0 % Promyelocytes % 0 % Blast Cells % 0 % Nucleated RBC % Not Reportable Seg Neutrophils # Man 2.2 (1.8-7.7) K/mm3 Band Neutrophils # 0.0 K/mm3 Lymphocytes # (Manual) 1.8 (1.2-5.4) K/mm3 Abs React Lymphs (Man) 0.0 K/mm3 Monocytes # (Manual) 0.2 (0.0-0.8) K/mm3 Eosinophils # (Manual) 0.1 (0.0-0.4) K/mm3 Basophils # (Manual) 0.0 (0.0-0.1) K/mm3 Metamyelocytes # 0.0 K/mm3 Myelocytes # 0.0 K/mm3 Promyelocytes # 0.0 K/mm3 Blast Cells # 0.0 K/mm3 WBC Morphology Not Reportable Hypersegmented Neuts Not Reportable Hyposegmented Neuts Not Reportable Hypogranular Neuts Not Reportable Smudge Cells Not Reportable Toxic Granulation Not Reportable Toxic Vacuolation Not Reportable Dohle Bodies Not Reportable Pelger-Huet Anomaly Not Reportable Jordan Rods Not Reportable Platelet Estimate Not Reportable Clumped Platelets Not Reportable Plt Clumps, EDTA Not Reportable Large Platelets Not Reportable Giant Platelets 1+ Platelet Satelliting Not Reportable Plt Morphology Comment Not Reportable RBC Morphology Not Reportable Dimorphic RBCs Not Reportable Polychromasia Not Reportable Hypochromasia 1+ Poikilocytosis Not Reportable Anisocytosis 1+ Microcytosis Not Reportable Macrocytosis Not Reportable Spherocytes Not Reportable Pappenheimer Bodies Not Reportable Sickle Cells Not Reportable Target Cells Not Reportable Tear Drop Cells Not Reportable Ovalocytes Not Reportable Helmet Cells Not Reportable Butler-Staples Bodies Not Reportable [place] Rings Not Reportable Vikram Cells Not Reportable Bite Cells Not Reportable Crenated Cell Not Reportable Elliptocytes Not Reportable Acanthocytes (Spur) Not Reportable Rouleaux Not Reportable Hemoglobin C Crystals Not Reportable Schistocytes Not Reportable Malaria parasites Not Reportable Tim Bodies Not Reportable Hem Pathologist Commnt No PT 12.4 (12.2-14.9) Sec. INR 0.92 (0.87-1.13) APTT 38.3 H (24.2-36.6) Sec. Sodium 143 (137-145) mmol/L Potassium 4.4 (3.6-5.0) mmol/L Chloride 106.1 (98-107) mmol/L Carbon Dioxide 21 L (22-30) mmol/L Anion Gap 20 mmol/L BUN 13 (7-17) mg/dL Creatinine 1.3 H (0.7-1.2) mg/dL Estimated GFR 53 ml/min BUN/Creatinine Ratio 10 % Glucose 106 H (65-100) mg/dL Calcium 9.3 (8.4-10.2) mg/dL Total Bilirubin 0.20 (0.1-1.2) mg/dL AST 18 (5-40) units/L ALT 11 (7-56) units/L Alkaline Phosphatase 72 (35-129) units/L Troponin T < 0.010 (0.00-0.029) ng/mL Total Protein 7.3 (6.3-8.2) g/dL Albumin 3.6 L (3.9-5) g/dL Albumin/Globulin Ratio 1.0 % Lipase 19 (13-60) units/L Urine Color (Yellow) Urine Turbidity (Clear) Urine pH (5.0-7.0) Ur Specific [place] (1.003-1.030) Urine Protein (Negative) mg/dL Urine Glucose (UA) (Negative) mg/dL Urine Ketones (Negative) mg/dL Urine Blood (Negative) Urine Nitrite (Negative) Urine Bilirubin (Negative) Urine Urobilinogen (<2.0) mg/dL Ur Leukocyte Esterase (Negative) Urine WBC (Auto) (0.0-6.0) /HPF Urine RBC (Auto) (0.0-6.0) /HPF U Epithel Cells (Auto) (0-13.0) /HPF Urine Mucus /HPF 11/16/19 11/16/19 Range/Units 18:43 Unknown WBC (4.5-11.0) K/mm3 RBC (3.65-5.03) M/mm3 Hgb (10.1-14.3) gm/dl Hct (30.3-42.9) % MCV (79-97) fl MCH (28-32) pg MCHC (30-34) % RDW (13.2-15.2) % Plt Count (140-440) K/mm3 Add Manual Diff Total Counted Seg Neuts % (Manual) (40.0-70.0) % Band Neutrophils % % Lymphocytes % (Manual) (13.4-35.0) % Reactive Lymphs % (Man) % Monocytes % (Manual) (0.0-7.3) % Eosinophils % (Manual) (0.0-4.3) % Basophils % (Manual) (0.0-1.8) % Metamyelocytes % % Myelocytes % % Promyelocytes % % Blast Cells % % Nucleated RBC % Seg Neutrophils # Man (1.8-7.7) K/mm3 Band Neutrophils # K/mm3 Lymphocytes # (Manual) (1.2-5.4) K/mm3 Abs React Lymphs (Man) K/mm3 Monocytes # (Manual) (0.0-0.8) K/mm3 Eosinophils # (Manual) (0.0-0.4) K/mm3 Basophils # (Manual) (0.0-0.1) K/mm3 Metamyelocytes # K/mm3 Myelocytes # K/mm3 Promyelocytes # K/mm3 Blast Cells # K/mm3 WBC Morphology Hypersegmented Neuts Hyposegmented Neuts Hypogranular Neuts Smudge Cells Toxic Granulation Toxic Vacuolation Dohle Bodies Pelger-Huet Anomaly Jordan Rods Platelet Estimate Clumped Platelets Plt Clumps, EDTA Large Platelets Giant Platelets Platelet Satelliting Plt Morphology Comment RBC Morphology Dimorphic RBCs Polychromasia Hypochromasia Poikilocytosis Anisocytosis Microcytosis Macrocytosis Spherocytes Pappenheimer Bodies Sickle Cells Target Cells Tear Drop Cells Ovalocytes Helmet Cells Butler-Staples Bodies [place] Rings Vikram Cells Bite Cells Crenated Cell Elliptocytes Acanthocytes (Spur) Rouleaux Hemoglobin C Crystals Schistocytes Malaria parasites Tim Bodies Hem Pathologist Commnt PT (12.2-14.9) Sec. INR (0.87-1.13) APTT (24.2-36.6) Sec. Sodium (137-145) mmol/L Potassium (3.6-5.0) mmol/L Chloride (98-107) mmol/L Carbon Dioxide (22-30) mmol/L Anion Gap mmol/L BUN (7-17) mg/dL Creatinine (0.7-1.2) mg/dL Estimated GFR ml/min BUN/Creatinine Ratio % Glucose (65-100) mg/dL Calcium (8.4-10.2) mg/dL Total Bilirubin (0.1-1.2) mg/dL AST (5-40) units/L ALT (7-56) units/L Alkaline Phosphatase (35-129) units/L Troponin T < 0.010 (0.00-0.029) ng/mL Total Protein (6.3-8.2) g/dL Albumin (3.9-5) g/dL Albumin/Globulin Ratio % Lipase (13-60) units/L Urine Color Yellow (Yellow) Urine Turbidity Clear (Clear) Urine pH 6.0 (5.0-7.0) Ur Specific [place] 1.016 (1.003-1.030) Urine Protein <15 mg/dl (Negative) mg/dL Urine Glucose (UA) Neg (Negative) mg/dL Urine Ketones Neg (Negative) mg/dL Urine Blood Neg (Negative) Urine Nitrite Neg (Negative) Urine Bilirubin Neg (Negative) Urine Urobilinogen < 2.0 (<2.0) mg/dL Ur Leukocyte Esterase Neg (Negative) Urine WBC (Auto) 1.0 (0.0-6.0) /HPF Urine RBC (Auto) 1.0 (0.0-6.0) /HPF U Epithel Cells (Auto) 1.0 (0-13.0) /HPF Urine Mucus Few /HPF - EKG Data -: EKG Interpreted by Sc EKG shows normal: sinus rhythm, ST-T waves (no stemi) - Radiology Data Radiology results: report reviewed CTA chest with contrast CT abdomen and pelvis with contrast INDICATION : abd pain, constipation, n,v, sob hx of sbo, hyster. TECHNIQUE: Axial imaging performed through the chest, with contrast bolus timing set to maximize opacification of the pulmonary arteries. 3-plane MIP reformatted images were obtained. Axial imaging was also performed through the abdomen and pelvis with the use of intravenous contrast. All CT scans at this location are performed using CT dose reduction for ALARA by means of automated exposure control. 100 mL of intravenous contrast administered. COMPARISON: FINDINGS: CTA chest: Contrast bolus timing is adequate with no pulmonary arterial filling defect identified to suggest PTE. The heart and great vessels appear unremarkable with no pathologic mediastinal adenopathy. There are moderate emphysematous changes in the lungs with no consolidation or pleural effusion identified. Degenerative changes are present in the spine with nothing acute. CT abdomen/pelvis: The liver, gallbladder, spleen, pancreas, adrenals, kidneys, and proximal GI tract appear unremarkable. Urinary bladder is unremarkable. There is a simple right ovarian cyst measuring 2.8 cm on image #390 of series #5. No pelvic free fluid. No acute colonic abnormality identified. Postoperative change is present in the distal small bowel in the lower mid pelvis. No bowel obstruction or abscess. IMPRESSION: 1. Negative for PTE. 2. Moderate emphysema with otherwise clear lungs. 3. Nothing acute in the abdomen. 4. Simple right ovarian cyst and postoperative change in the bowel without obstruction. - Medical Decision Making Patient comes to the ED complaining of no bowel movement x10 days. No nausea vomiting noted in the ED. Patient received 1 dose of Dilaudid for pain with some improvement. Patient states that she has a history of constipation despite laxatives and saw her GI doctor yesterday and taking MiraLAX without improvement. CT imaging does not show any signs of obstruction or acute intra- abdominal pathology. Patient also complains of shortness of breath and chest pain. EKG without STEMI. Troponin negative x2. CTA negative for PE is suggestive of emphysema. Patient also mentions she has had post hysterectomy vaginal bleeding w and is currently undergoing outpatient work-[facility] Patient is unaware that she has emphysema but was informed that this is based on her CAT scan. She will be prescribed albuterol as needed and outpatient follow- up with pulmonology - Differential Diagnosis PE, VT, COPD, constipation, obstruction, intra-abdominal infection Critical Care Time: No Critical care attestation.: If time is entered above; I have spent that time in minutes in the direct care of this critically ill patient, excluding procedure time. ED Disposition Clinical Impression: Constipation, Atypical chest pain, Emphysema lung Disposition: DC- TO HOME OR SELFCARE Is pt being admited?: No Does the pt Need Aspirin: No Condition: Stable Instructions: Chest Pain (ED), Emphysema (ED), Chronic Obstructive Pulmonary Disease (ED) Additional Instructions: Take the medication as prescribed. Follow-up with your doctor or doctor/clinic provided. Return if symptoms worsen as indicated by your discharge instructions. Prescriptions: Lactulose [Cephulac] 20 gm PO BID PRN #240 ml PRN Reason: Constipation Albuterol Sulfate [Proventil Hfa] 6.7 gm IH Q4HR PRN #1 hfa.aer.ad PRN Reason: Shortness Of Breath Ondansetron [Zofran Odt] 4 mg PO Q8HR PRN #20 tab.rapdis PRN Reason: Nausea And Vomiting Referrals: [facility] MD ARELY [Primary Care Provider] - 3-5 Days your, gi doctor [Other] - 3-5 Days YANCI TURNER MD [Staff Physician] - 3-5 Days (Lung specialist ) Time of Disposition: 22:44
--- NOTE | 2019-11-16 21:10 | Cat Scan Report ---
CTA chest with contrast CT abdomen and pelvis with contrast INDICATION : abd pain, constipation, n,v, sob hx of sbo, hyster. TECHNIQUE: Axial imaging performed through the chest, with contrast bolus timing set to maximize opa cification of the pulmonary arteries. 3-plane MIP reformatted images were obtained. Axial imaging was also performed through the abdomen and pelvis with the use of intravenous contrast. All CT scans at this location are performed using CT dose reduction for ALARA by means of automated exposure control. 100 mL of intravenous contrast administered. COMPARISON: FINDINGS: CTA chest: Contrast bolus timing is adequate with no pulmonary arterial filling defect identified to suggest PTE. The heart and great vessels appear unremarkable with no pathologic mediastinal adenopath y. There are moderate emphysematous changes in the lungs with no consolidation or pleural effusion id entified. Degenerative changes are present in the spine with nothing acute. CT abdomen/pelvis: The liver, gallbladder, spleen, pancreas, adrenals, kidneys, and proximal GI tract appear unremarkable. Urinary bladder is unremarkable. There is a simple right ovarian cyst measuring 2.8 cm on image #390 of series #5. No pelvic free fluid. No acute colonic abnormality identified. Postoperative change is present in the distal small bowel in the lower mid pelvis. No bowel obstruction or abscess. IMPRESSION: 1. Negative for PTE. 2. Moderate emphysema with otherwise clear lungs. 3. Nothing acute in the abdomen. 4. Simple right ovarian cyst and postoperative change in the bowel without obstruction. Signer Name: Corona Parker MD Signed: 11/16/2019 9:06 PM Workstation Name: [id number]
--- NOTE | 2019-11-16 22:41 | History and Physical Report ---
Medications and Allergies Allergies Allergy/AdvReac Type Severity Reaction Status Date / Time No Known Allergies Allergy Verified 09/11/19 15:33 Home Medications Medication Instructions Recorded Confirmed Last Taken Type Oxycodone HCl/Acetaminophen 1 each PO Q6HR PRN #10 tablet 09/13/19 Unknown Rx [Percocet 7.5/325 mg] Exam - Constitutional Vitals: Temp Pulse Resp BP Pulse Ox 98.2 F 74 14 176/94 96 11/16/19 15:54 11/16/19 19:47 11/16/19 19:47 11/16/19 15:54 11/16/19 19:47 Results - Labs CBC & Chem 7: 11/16/19 16:21 11/16/19 16:21 Labs: Abnormal lab results 11/16/19 11/16/19 11/16/19 Range/Units 16:21 16:21 16:21 WBC 4.4 L (4.5-11.0) K/mm3 RBC 5.08 H (3.65-5.03) M/mm3 MCH 26 L (28-32) pg RDW 22.3 H (13.2-15.2) % Lymphocytes % (Manual) 42.0 H (13.4-35.0) % APTT 38.3 H (24.2-36.6) Sec. Carbon Dioxide 21 L (22-30) mmol/L Creatinine 1.3 H (0.7-1.2) mg/dL Glucose 106 H (65-100) mg/dL Albumin 3.6 L (3.9-5) g/dL
[2019-11-16] MEDS: LACTULOSE 20 GM/30 ML ORAL LIQD PO ONE (22:50)
[2019-11-16] MEDS: FAMOTIDINE 20 MG/2 ML INJ IV ONE (23:00)
[2019-11-16] MEDS ORDERED: FAMOTIDINE 20 MG/2 ML INJ IV ONE (23:10)
[2019-11-16] MEDS ORDERED: LACTULOSE 20 GM/30 ML ORAL LIQD ONE (23:13)
[2019-11-17 00:30] VITALS: BP 147/99
[2019-11-17] MEDS ORDERED: ENOXAPARIN 40 MG/0.4 ML INJ SUB-Q SCH (10:00)
== END 2019-11-17 00:30 | disposition home or self-care (01) ==
LOC: ED 15:41 → UNDOADMOB 22:40 → 4A 22:40 → ED 11-17 00:30
DX: K59.00 Constipation, unspecified (principal); J43.8 Other emphysema; R11.10 Vomiting, unspecified; R07.89 Other chest pain; I25.2 Old myocardial infarction; K21.9 Gastro-esophageal reflux disease without esophagitis; Z98.890 Other specified postprocedural states; Z79.899 Other long term (current) drug therapy
CPT/HCPCS: 36415; 71046; 71275; 74177; 80053; 81001; 83690; 84484; 85007; 85025; 85610; 85730; 93005; 93010; 96361; 96374; 96375; 99285; J1170; J2405; J7030; Q9967